=== PATIENT | female | born 1945 | race Caucasian/White ===

== ENCOUNTER → 2016-04-15 | Outpatient (CLI) | payer OTHER | LOC: FIMAGING 10:12 | PROVIDERS: ATTEND Physician Assistant Surgical | DX: Z98.1 Arthrodesis status (principal); M51.35 Other intervertebral disc degeneration, thoracolumbar region ==

== ENCOUNTER → 2016-06-30 | Outpatient (CLI) | payer OTHER | LOC: FIMAGING 10:33 | PROVIDERS: ATTEND Physician Assistant Surgical | DX: M51.35 Other intervertebral disc degeneration, thoracolumbar region (principal); M48.05 Spinal stenosis, thoracolumbar region; M99.72 Connective tissue and disc stenosis of intervertebral foramina of thoracic region; Z98.1 Arthrodesis status ==

== ENCOUNTER → 2016-07-31 | Outpatient (CLI) | payer OTHER ==
[~2016-07-31] MED LIST: GADOBUTROL 10 ML VIAL IVP ONE
== END ==
LOC: FIMAGING 15:29
PROVIDERS: ATTEND Physician Assistant Surgical
DX: M51.35 Other intervertebral disc degeneration, thoracolumbar region (principal); M47.895 Other spondylosis, thoracolumbar region; M48.05 Spinal stenosis, thoracolumbar region; M99.72 Connective tissue and disc stenosis of intervertebral foramina of thoracic region; Z98.1 Arthrodesis status
CPT/HCPCS: 72158; A9585

== ENCOUNTER → 2016-08-05 | Day surgery (SDC) | payer OTHER ==
[~2016-08-05] MED LIST changes: -GADOBUTROL 10 ML VIAL IVP ONE; +IOPAMIDOL (ISOVUE-300) 100 ML BTL ONE
== END | disposition home or self-care (01) ==
LOC: FIMAGING 14:14
PROVIDERS: ATTEND Radiology Diagnostic Radiology
DX: L02.91 Cutaneous abscess, unspecified (principal); D72.829 Elevated white blood cell count, unspecified; M43.26 Fusion of spine, lumbar region
CPT/HCPCS: Q9967

== ENCOUNTER → 2016-09-08 | Outpatient (CLI) | payer OTHER | LOC: FIMAGING 09:50 | PROVIDERS: ATTEND Physician Assistant Surgical | DX: M51.85 Other intervertebral disc disorders, thoracolumbar region (principal); Z98.1 Arthrodesis status | CPT/HCPCS: 78300; A9503 ==

== ENCOUNTER 2016-11-17 05:47 | Inpatient (IN) | payer OTHER ==
[2016-11-16 10:38] LABS: % IMMATURE GRANULYOCYTES 0.7 % (0.0-1.1); ABSOLUTE IMMATURE GRANULOCYTES 0.04 10^3/uL (0.00-0.10); ADD DIFF? NO; ADD MORPH? NO; ADD SCAN? NO; ATYPICAL LYMPHOCYTE FLAG 20 (0-99); FRAGMENT RBC FLAG 0 (0-99); HEMATOCRIT 39.9 % (38.0-47.0); HEMOGLOBIN 13.4 g/dL (12.6-16.3); LEFT SHIFT FLG 0 (0-99); LIPEMIA HEMOLYSIS FLAG 80 (0-99); MEAN CELL HEMOGLOBIN 31.4 pg (27.9-34.1); MEAN CELL HEMOGLOBIN CONCENTR. 33.6 g/dL (32.4-36.7); MEAN CELL VOLUME 93.4 fL (81.5-99.8); MEAN PLATELET VOLUME 9.1 fL (8.7-11.7); PLATELET CLUMPS FLAG 0 (0-99); PLATELET COUNT 357 10^3/uL (150-400); RED BLOOD CELL COUNT 4.27 10^6/uL (4.18-5.33); RED CELL DISTRIBUTION WIDTH 13.4 % (11.5-15.2)
[2016-11-17] MEDS ORDERED: TRANEXAMIC ACID 1,000 MG in NS 100 ML IV ONE (06:00)
[2016-11-17] MEDS ORDERED: ceFAZolin 2 GM/DEXTROSE 100 ML IV ONE (06:03)
[2016-11-17] MEDS ORDERED: fentaNYL 100 MCG/2 ML INJ IT ONE (06:03)
[2016-11-17] MEDS ORDERED: morphINE PF 5 MG/10 ML INJ IT ONE (06:03)
[2016-11-17] MEDS ORDERED: LR 1,000 ML IV ONE (06:05)
[2016-11-17] MEDS ORDERED: LIDOCAINE 1% 2 ML INJ ID PRN (06:05)
[2016-11-17] MEDS ORDERED: CHLORHEXIDINE GLUC HIBICLENS 118 ML BTL TP ONE (06:45)
[2016-11-17] MEDS ORDERED: THROMBIN (BOVINE) 20,000 UNIT VIAL TP ONE (06:45)
[2016-11-17] MEDS ORDERED: CITRATE DEXTROSE SOLN 500 ML BAG ONE (06:46)
[2016-11-17] MEDS ORDERED: BACITRACIN 50,000 UNITS/10 ML SYR IRR ONE (06:46)
[2016-11-17] MEDS ORDERED: BUPIVACAINE 0.25% 30 ML SDV ONE (06:46)
--- NOTE | 2016-11-17 06:53 | PDHPUP ---
History & Physical Update H&P update statement: This history and physical update is based on an assessment of the patient which was completed after admission or registration (within 24 hours), but prior to the surgery/procedure. H&P update: no change in patient's condition since H&P completed
[2016-11-17] MEDS ORDERED: MIDAZOLAM 2 MG/2 ML VIAL IVP ONE (06:58)
--- NOTE | 2016-11-17 07:00 | PDANEPAE ---
ANE History of Present Illness [id number] spinal stenosis ANE Past Medical History - Cardiovascular History Hx Hypertension: No Hx Arrhythmias: No Hx Chest Pain: No Hx Coronary Artery / Peripheral Vascular Disease: No Hx CHF / Valvular Disease: No Hx Palpitations: No - Pulmonary History Hx COPD: No Hx Asthma/Reactive Airway Disease: No Hx Recent Upper Respiratory Infection: No Hx Oxygen in Use at Home: No Hx Sleep Apnea: No Sleep Apnea Screening Result - Last Documented: Negative - Neurologic History Hx Cerebrovascular Accident: No Hx Seizures: No Hx Dementia: No Neurologic History Comment: MIGRAINES - VERAPAMIL - Endocrine History Hx Diabetes: No - Renal History Hx Renal Disorders: No - Liver History Hx Hepatic Disorders: No - Neurological & Psychiatric Hx Hx Neurological and Psychiatric Disorders: No - Cancer History Hx Cancer: No - Congenital Disorder History Hx Congenital Disorders: No - GI History Hx Gastrointestinal Disorders: Yes Gastrointestinal History Comment: GERD. HX - ULCERS. CDIFF - DX 09/2014 - Other Health History Other Health History: NEG - Chronic Pain History Chronic Pain: Yes (BACK PAIN) - Surgical History Prior Surgeries: HYSTERECTOMY. ACL/MENISCUS R KNEE. BACK SURG/ FUSIONS X8. JOE FOOT SURG. NECK LESIONS REMOVED. PROLAPSE REPAIR ANE Review of Systems Review of Systems: - Exercise capacity METS (RN): 4 METS ANE Patient History - Allergies Allergies/Adverse Reactions: SHRIMP Allergy (Severe, Uncoded 10/08/14 11:42) SWELLS ANYWHERE IT TOUCHES SEASONAL Allergy (Intermediate, Uncoded 10/08/14 11:42) RUNNY NOSE, ITCHY EYES - Home Medications Home Medications: Estradiol [Estrace Vaginal (*)] 0 gm VG MOWEFR@2200 10/08/14 [Last Taken ] Fluticasone Nasal [Flonase Nasal [place]] 1 sprays EACHNARE DAILY 10/08/14 [Last Taken 10/04/14] Gemfibrozil [Lopid 600 MG (*)] 600 mg PO BIDAC 10/08/14 [Last Taken 10/04/14] Herbals/Supplements -Info Only 1 ea PO DAILY 10/08/14 [Last Taken 10/03/14] Multivitamins [Multivitamin (*)] 1 each PO DAILY 10/08/14 [Last Taken 10/03/14] Omeprazole [Prilosec 20 mg] 20 mg PO BID 10/08/14 [Last Taken 10/03/14] Rosuvastatin Calcium [Crestor 20mg (*)] 10 mg PO HS 10/08/14 [Last Taken ] Verapamil HCl [Verapamil Sr] 180 mg PO DAILY 10/08/14 [Last Taken 10/03/14] Vitamin B Complex [B Complex] 1 each PO DAILY 10/08/14 [Last Taken 10/03/14] clonazePAM [klonoPIN (*)] 1 mg PO HS PRN 10/08/14 [Last Taken 10/07/14 22:00] Etodolac 400 mg PO DAILY 10/21/16 [Last Taken Unknown] GABAPENTIN 1,200 mg PO BID 11/16/16 [Last Taken Unknown] Ibuprofen [Motrin (*)] 200 - 600 mg PO DAILY PRN 11/16/16 [Last Taken Unknown] traMADol [Ultram 50 mg (*)] 100 mg PO DAILY AT 6AM PRN 11/16/16 [Last Taken Unknown] - NPO status NPO Since - Liquids (Date): 11/16/16 NPO Since - Liquids (Time): 16:00 NPO Since - Solids (Date): 11/16/16 NPO Since - Solids (Time): 16:00 - Smoking Hx Smoking Status: Former smoker - Family Anes Hx Family Hx Anesthesia Complications: NEG ANE Labs/Vital Signs - Labs Result Diagrams: 11/16/16 10:25 - Vital Signs Blood Pressure: 160/74 Heart Rate: 81 Respiratory Rate: 14 O2 Sat (%): 97 Height: 170.18 cm Weight: 68.039 kg ANE Physical Exam - Airway Neck exam: FROM Mallampati Score: Class 1 Mouth exam: normal dental/mouth exam - Pulmonary Pulmonary: no respiratory distress - Cardiovascular Cardiovascular: regular rate and rhythym - ASA Status ASA Status: II ANE Anesthesia Plan Anesthesia Plan: general endotracheal anesthesia
[2016-11-17] MEDS ORDERED: ROCURONIUM 50 MG/5 ML VIAL ONE (07:08)
[2016-11-17] MEDS ORDERED: PROPOFOL 200 MG/20 ML VIAL ONE ×2 (07:09→07:41)
[2016-11-17] MEDS ORDERED: HYDROmorphONE/DILAUDID 2 MG/ML INJ ONE (07:09)
[2016-11-17] MEDS ORDERED: fentaNYL 100 MCG/2 ML INJ ONE ×6 (07:09→11:06)
[2016-11-17] MEDS ORDERED: LIDOCAINE 2% 5 ML SDV ONE (07:13)
[2016-11-17] MEDS ORDERED: ONDANSETRON 4 MG/2 ML VIAL ONE (07:13)
[2016-11-17] MEDS ORDERED: KETAMINE 100 MG/10 ML SYR ONE (07:13)
[2016-11-17] MEDS ORDERED: DEXAMETHASONE 4 MG/ML VIAL ONE (07:13)
--- NOTE | 2016-11-17 07:34 | PDGENHP ---
History and Physical History and Physical: I met with the patient and her this morning. I reviewed the procedure for the left SI joint fusion, including risks and benefits. All questions answered and she was in agreement with proceeding. I also marked her left SI joint.
[2016-11-17] MEDS ORDERED: SURGIFLO MATRIX KIT WITH THROMBIN TP ONE (08:14)
[2016-11-17] MEDS ORDERED: epHEDrine SULFATE 10 MG/ML SYR ONE (08:59)
[2016-11-17] MEDS ORDERED: PHENYLEPHRINE HCL 100 MCG/ML SYR ONE (08:59)
[2016-11-17] MEDS ORDERED: ONDANSETRON 4 MG/2 ML VIAL IVP PRN ×2 (10:14→11:10)
[2016-11-17] MEDS ORDERED: PROMETHAZINE HCL 25 MG/ML INJ IVP PRN (10:14)
[2016-11-17] MEDS ORDERED: NALOXONE HCL 0.4 MG/ML INJ IVP PRN ×2 (10:14→11:10)
--- NOTE | 2016-11-17 11:04 | POSTANESTH ---
Post Anesthetic Evaluation Cardiovascular Status: Normal, Stable Respiratory Status: Normal, Stable Level of Consciousness/Mental Status: Can Participate in Eval Pain Control: Adequate, Prn Tx Ordered Nausea/Vomiting Control: Adequate, Prn Tx Ordered Complications Possibly Related to Anesthesia: None Noted
[2016-11-17] MEDS ORDERED: morphINE PCA 30 MG/30 ML PCA IV PRN (11:10)
[2016-11-17] MEDS ORDERED: diphenhydrAMINE 25 MG CAP PO PRN (11:10)
[2016-11-17] MEDS ORDERED: BISACODYL 10 MG SUPP PR PRN (11:10)
[2016-11-17] MEDS ORDERED: MAGNESIUM HYDROXIDE 30 ML UDCUP PO PRN (11:10)
[2016-11-17] MEDS ORDERED: LACTULOSE 20 GM/30 ML UDCUP PO PRN (11:10)
[2016-11-17] MEDS ORDERED: ONDANSETRON DISINTEGRATING 4 MG TAB PO PRN (11:10)
--- NOTE | 2016-11-17 11:10 | POSTOPPROG ---
Post Op Note Date of Operation: 11/17/16 Surgeon: Bean Munoz Transformation Manager: Sandie Anesthesiologist: HOLLI Anesthesia: GET(General Endotracheal) Pre-op Diagnosis: T12/L1 stenosis. left SI joint pain/arthritis Post-op Diagnosis: same Indication: Low back pain, stenosis, left SI joint pain Procedure: Left SI joint fusion (Dr. Rodriguez). T12/L1 TLIF (Dr. Munoz) Findings: severe stenosis T12/L1 Inf/Abcess present in the surg proc area at time of surgery?: No EBL: 50-100 Complications: none Drains: Nils Craven (to bulb suction)
[2016-11-17] MEDS: fentaNYL 100 MCG/2 ML INJ IVP PRN ×2 (11:12→11:22)
[2016-11-17] MEDS ORDERED: NS 1,000 ML IV SCH (11:15)
[2016-11-17] MEDS ORDERED: clonazePAM 1 MG TAB PO PRN (11:20)
--- NOTE | 2016-11-17 11:27 | SOAPPROG ---
SRINIVASAN Progress Note Assessment/Plan: Assessment: POST OP CHECK: doing well s/p T12/L1 TLIF and left SI joint fusion Plan: CPM and transfer to floor per protocol CT lumbar spine without contrast today to evaluate position of T12/L1 grafts and hardware 11/17/16 11:26 11/17/16 11:28 Subjective: awake, alert, comfortable. Objective: Vital Signs Temp Pulse Resp BP Pulse Ox 36.4 C 81 14 160/74 H 97 11/17/16 06:17 11/17/16 06:59 11/17/16 06:59 11/17/16 06:59 11/17/16 06:59 Laboratory Results 11/16/16 10:25 Neuro: Speech clear Oriented x3 follows commands x 4 sens +LT, SETH Vital: HR: 83 BP: 131/72 O2:92% ICD10 Worksheet Patient Problems: Problems Problem Status Onset C. difficile diarrhea Acute 01/21/15 ESBL (extended spectrum beta-lactamase) producing bacteria infection Acute 02/05 Lumbago Acute Radiculopathy Acute
[2016-11-17] MEDS ORDERED: HYDROmorphONE/DILAUDID 1 MG/ML INJ ONE (11:37)
[2016-11-17] MEDS: HYDROmorphONE/DILAUDID 1 MG/ML INJ IVP PRN ×4 (11:38→12:26)
[2016-11-17] MEDS ORDERED: clonazePAM 0.5 MG TAB PO PRN (12:37)
--- NOTE | 2016-11-17 14:04 | GOP ---
[f rep st] OPERATIVE REPORT DATE OF OPERATION: SURGEON: Dylan Rodriguez MD PUTTER IN: Scott Hooper, PAC. ANESTHESIA: General. PREOPERATIVE DIAGNOSIS: Left-sided sacroiliitis. POSTOPERATIVE DIAGNOSIS: Left-sided sacroiliitis. PROCEDURE PERFORMED: 1. Left-sided sacroiliac joint fusion with 2 [employer]tronic [place] devices. 2. Use of intraoperative 3D Stealth navigation. 3. Use of intraoperative fluoroscopy, less than 1 hour fluoroscopy time. 4. Use of neuromonitoring. FINDINGS: per imaging SPECIMENS: None. ESTIMATED BLOOD LOSS: 10 mL. INDICATIONS: This is a patient of Dr. Munoz who has undergone multiple spinal surgeries. She presented with adjacent level breakdown of her thoracolumbar junction, as well as sacroiliitis and SI joint dysfunction. After discussion of the risks, benefits, and treatment alternatives, the patient opted for surgical intervention, both for her thoracic, thoracolumbar spine adjacent level of breakdown as well as her left-sided sacroiliac joint dysfunction. The spinal adjacent level surgery will be dictated in a separate op report with Dr. Munoz. This is the left-sided sacroiliac joint fusion procedure. DESCRIPTION OF PROCEDURE: The patient was brought to the operating theater and underwent general endotracheal anesthesia without complications. She had Venodynes, STELLA hose, and the appropriate lines placed by Anesthesia. She was flipped prone onto the Nils table and all bony prominences inspected and padded. The thoracolumbar midline incision, as well as the right posterior superior iliac spine and the left-sided buttocks were all prepped and draped in the usual sterile surgical fashion. A time-out was completed per protocol, and the patient received antibiotics within 1 hour of incision. A small incision was infiltrated over the right PSIS and taken down through subcutaneous tissues. We then placed a percutaneous pin into the right PSIS for the 3D Stealth navigation system. We then completed a 3D Stealth navigation spin with the O-arm. Using 3D Stealth navigation, we picked our entry point to the left sacroiliac joint. The trajectory was not ideal given the patient's angulation of her pelvis as well as widening of the SI joint. At this point, using the navigation system we marked out an incision and made this as a vertical gorge on the left buttocks. The incision was infiltrated with Marcaine with epinephrine. Using the stealth navigation system, we drilled, tapped, and placed two 12 x 40 Medtronic [place] screw devices filled with morselized autograft and allograft across the left-sided SI joint. Another 3D Stealth navigation spin demonstrated excellent placement of this hardware. We removed the percutaneous pin from the right-sided PSIS and closed the wounds, after irrigation, with multiple layers including Vicryl sutures for the deep layers and Dermabond for the skin. The patient's wounds were dressed sterilely. This was completion of this portion of the surgery and she was still asleep at the time of this dictation. There were no changes in neuro monitoring. The patient then underwent thoracolumbar portion of the surgery with Dr. Munoz, which will be dictated in a separate operative report. COMPLICATIONS: None. /[id number]/MODL MTDD
[2016-11-17] MEDS: ACETAMINOPHEN 500 MG TAB PO SCH (14:38)
[2016-11-17] MEDS ORDERED: IOPAMIDOL (ISOVUE 370) 100 ML BTL IV ONE (15:23)
[2016-11-17] MEDS: POLYETHYLENE GLYCOL 3350 17 GM PKT PO SCH ×2 (16:46→17:03)
[2016-11-17] MEDS: ceFAZolin 2 GM/DEXTROSE 100 ML IV SCH ×2 (16:56→23:59)
[2016-11-17] MEDS: GEMFIBROZIL 600 MG TAB PO SCH (17:03)
--- NOTE | 2016-11-17 17:10 | GOP ---
[f rep st] OPERATIVE REPORT DATE OF OPERATION: 11/17/2016 SURGEON: Bean Munoz MD NEUROSURGEON: Bean Munoz MD THIRD LOADER: LAUREANO Robertson. ANESTHESIA: General endotracheal. PREOPERATIVE DIAGNOSIS: Severe T12-L1 degenerative disk disease with critical spinal stenosis and in tractable low back pain and bilateral radicular discomfort. POSTOPERATIVE DIAGNOSIS: Severe T12-L1 degenerative disk disease with critical spinal stenosis and i ntractable low back pain and bilateral radicular discomfort. PROCEDURE PERFORMED: 1. Left-sided T12-L1 far lateral transpedicular decompression with T12-L1 posterior nonsegmental (pe dicle screw and axial device) fixation and posterolateral fusion with local autograft and bone morpho genic protein. 2. T12-L1 posterior/transforaminal lumbar interbody fusion with 2 structural PEEK interbody spacers, local autograft and bone morphogenic protein. 3. Use of intraoperative microscopy, fluoroscopy and computer volumetric stereotactic navigation, wi th intraoperative neurophysiologic testing. FINDINGS: ESTIMATED BLOOD LOSS: Trace. INDICATIONS: The patient is a 71-year-old woman who has an extensive past medical and surgical histo ry involving her low back, with multiple prior decompressions and fusions, who has intractable pain a nd radicular symptoms, as well as neurogenic claudication with severe spinal stenosis and degenerativ e disk disease, and disk space collapse at the T12-L1 level. She presents now for surgical decompres paulie and stabilization. DESCRIPTION OF PROCEDURE: After informed consent was obtained, the patient was taken to the operatin g room, and placed in the prone position on the Nils table. The thoracolumbar sacral area was pre pped and draped in a sterile fashion, and after Dr. Rodriguez performed an SI joint fusion, the T12-L1 a en was localized and after injection of the subcutaneous and intramuscular tissues with local anesth esia, a midline linear incision was created over this area. This was carried down to the fascial lay er, which was incised with the monopolar electrocautery and carried in a subperiosteal plane along th e spinous process and lamina bilaterally. Intraoperative fluoroscopy was again used to verify the co rrect levels. Following this, dissection was carried out over the facet joints. The microscope was then brought in and, after re-verification of the correct levels, a left-sided far lateral transpedicular decompress ion was performed with complete unroofing of the facet joint and neural foramina at T12 and L1, as we ll as the central canal decompression was extensively performed and a right-sided lateral recess deco mpression by angling the microscope across the midline. Following adequate decompression, the [employer] neuronavigational system was brought in and using computer volumetric stereotactic navigation, pedi xiomy screws were placed at T12 and L1 bilaterally. Each individual screw was tested neurophysiologica lly with monopolar electrostimulation and interpretation of the potentials by the surgeon. Biplanar fluoroscopy was utilized to verify good position of the screws. Rods were then placed under distraction, during which time a complete diskectomy was performed. A la rge lateral disk herniation was identified. It was carefully removed with the reverse angle curettes and pituitary rongeur. A complete diskectomy was performed with preparation of endplates and placem ent of 2 structural PEEK interbody spacers, local autograft and bone morphogenic protein for T12-L1 p osterior/transforaminal lumbar interbody fusion. An initial x-ray was taken with placement of the 1s t graft and more local autograft along with bone morphogenic protein and a 2nd PEEK interbody spacer was placed. Following this, the 1st graft had migrated somewhat anteriorly. It was difficult to tel l exactly how far but I did not feel that it was in the patient's best interest to try to retrieve it . The screw and kate system was then placed in a slight amount of compression in order to facilitate bon y union and to minimize the potential for posterior graft migration. The remaining lamina and facet joint on the right were extensively decorticated and the residual local autograft along with bone mor phogenic protein was placed out laterally for posterolateral fusion at the T12-L1 level. The subcuta neous and intramuscular tissues were re-infiltrated with local anesthesia. A drain was placed. The wound was closed in a layered fashion using interrupted Vicryl sutures followed by Steri-Strips on th e skin. COMPLICATIONS: None. DISPOSITION: The patient is currently in the process of being repositioned for extubation. /[id number]/MODL
[2016-11-17] MEDS: oxyCODONE IR 5 MG TAB PO PRN (19:45)
[2016-11-17] MEDS: SENNOSIDES/DOCUSATE SODIUM TAB PO SCH (19:45)
[2016-11-17] MEDS: morphINE SR 15 MG TAB PO SCH (19:45)
[2016-11-17] MEDS: GABAPENTIN 400 MG CAP PO SCH (19:45)
[2016-11-17] MEDS: ROSUVASTATIN CALCIUM 20 MG TAB PO SCH (19:45)
[2016-11-17] MEDS: FAMOTIDINE 20 MG TAB PO SCH (19:47)
[2016-11-17 20:06] VITALS: RESP 16
[2016-11-17] MEDS ORDERED: NON-FORMULARY NEW DRUG (Gabapentin [Gabapentin] 1,200 MG) PO SCH (21:00)
[2016-11-18] MEDS: oxyCODONE IR 5 MG TAB PO PRN ×4 (00:01→15:13)
[2016-11-18] MEDS: POLYETHYLENE GLYCOL 3350 17 GM PKT PO SCH ×4 (00:01→20:42)
[2016-11-18] MEDS: ACETAMINOPHEN 500 MG TAB PO SCH ×4 (00:01→20:29)
[2016-11-18 04:52] LABS: % IMMATURE GRANULYOCYTES 0.4 % (0.0-1.1); ABSOLUTE IMMATURE GRANULOCYTES 0.06 10^3/uL (0.00-0.10); ADD DIFF? NO; ADD MORPH? NO; ADD SCAN? NO; ATYPICAL LYMPHOCYTE FLAG 0 (0-99); FRAGMENT RBC FLAG 0 (0-99); HEMATOCRIT 31.4 % (38.0-47.0); HEMOGLOBIN 10.5 g/dL (12.6-16.3); LEFT SHIFT FLG 0 (0-99); LIPEMIA HEMOLYSIS FLAG 80 (0-99); MEAN CELL HEMOGLOBIN 31.5 pg (27.9-34.1); MEAN CELL HEMOGLOBIN CONCENTR. 33.4 g/dL (32.4-36.7); MEAN CELL VOLUME 94.3 fL (81.5-99.8); MEAN PLATELET VOLUME 9.5 fL (8.7-11.7); PLATELET CLUMPS FLAG 0 (0-99); PLATELET COUNT 299 10^3/uL (150-400); RED BLOOD CELL COUNT 3.33 10^6/uL (4.18-5.33); RED CELL DISTRIBUTION WIDTH 13.5 % (11.5-15.2)
[2016-11-18 05:01] LABS: ANION GAP 8 mEq/L (8-16); CALCIUM 9.6 mg/dL (8.5-10.4); CARBON DIOXIDE 22 mEq/l (22-31); CHLORIDE 108 mEq/L (97-110); CREATININE 0.7 mg/dL (0.6-1.0); GLOMERULAR FILTRATION RATE > 60; GLUCOSE 104 mg/dL (70-100); POTASSIUM 4.3 mEq/L (3.5-5.2); SODIUM 138 mEq/L (134-144)
[2016-11-18] MEDS: GEMFIBROZIL 600 MG TAB PO SCH ×2 (06:09→17:04)
[2016-11-18] MEDS: METHOCARBAMOL 750 MG TAB PO PRN ×2 (06:11→17:07)
--- NOTE | 2016-11-18 07:22 | SOAPPROG ---
SOAP Progress Note Assessment/Plan: Assessment: POD #1: doing well s/p T12/L1 TLIF and left SI joint fusion Post op CT lumbar spine and CT angiogram not concerning for vessel impingement. Plan: PT/OT today. LSO when out of bed SELENE to bulb suction call with Neuro changes Subjective: awake, alert, feels "sore" but pain is manageable denies any new numbness, tingling or weakness Objective: Vital Signs Temp Pulse Resp BP Pulse Ox 36.6 C 72 16 132/56 H 96 11/18/16 04:00 11/18/16 04:00 11/18/16 04:00 11/18/16 04:00 11/18/16 04:00 Laboratory Results 11/18/16 04:31 11/18/16 04:31 11/17/16 11/18/16 11/19/16 05:59 05:59 05:59 Intake Total 3530 Output Total 4755 Balance -1225 SELENE: 115ml Neuro: SETH, sens +LT 5/5 PF/DF/EHL Dressing: CDI ICD10 Worksheet Patient Problems: Problems Problem Status Onset C. difficile diarrhea Acute 01/21/15 ESBL (extended spectrum beta-lactamase) producing bacteria infection Acute 02/05 Lumbago Acute Radiculopathy Acute
[2016-11-18] MEDS: GABAPENTIN 400 MG CAP PO SCH ×2 (08:54→20:28)
[2016-11-18] MEDS: FAMOTIDINE 20 MG TAB PO SCH ×2 (08:55→20:28)
[2016-11-18] MEDS: SENNOSIDES/DOCUSATE SODIUM TAB PO SCH ×2 (08:55→20:41)
[2016-11-18] MEDS: morphINE SR 15 MG TAB PO SCH ×2 (08:56→20:28)
[2016-11-18] MEDS: ENOXAPARIN 40 MG/0.4 ML SYR SC SCH (08:56)
[2016-11-18] MEDS: VERAPAMIL ER 180 MG TAB PO SCH (08:56)
[2016-11-18] MEDS ORDERED: VERAPAMIL HCL 180 MG PO SCH (09:00)
[2016-11-18] MEDS: FLUTICASONE NASAL 120 SPRAYS/16 GM MDI EACHNARE SCH (10:28)
[2016-11-18] MEDS ORDERED: FLU VACC QS 2017-18 (3YR+)/PF 0.5 ML SYR (FLUARIX QUAD) IM ONE (12:14)
--- NOTE | 2016-11-18 14:05 | ASMTCMCOM ---
CM Note CM Note Notes: Pt had planned spinal surgery. OT/PT clear pt for home. Pt lives w husb, anticipate d/c when medically stable. CM available for changes/needs. Date Signed: 11/18/2016 02:05 PM Electronically Signed By:MELLY Pereira
--- NOTE | 2016-11-18 17:18 | SOAPPROG ---
SRINIVASAN Progress Note Assessment/Plan: Assessment:asked by Dr. Edward to review postop images regarding hardware migration. Images reviewed. Clear fat planes between aorta, IVC and splenic vein noted. Discussed with patient who is recovering well after her spinal instrumentation yesterday. No further workup warranted at this time. If evidence of future migration noted on subsequent future images, further assessment can be entertained at that time. Please call with further questions. Plan: 11/18/16 17:08 Objective: Vital Signs Temp Pulse Resp BP Pulse Ox 36.6 C 69 16 137/62 H 94 11/18/16 15:58 11/18/16 15:58 11/18/16 15:58 11/18/16 15:58 11/18/16 15:58 Laboratory Results 11/18/16 04:31 11/18/16 04:31 11/17/16 11/18/16 11/19/16 05:59 05:59 05:59 Intake Total 3530 Output Total 9255 730 Balance -1225 -730 ICD10 Worksheet Patient Problems: Problems Problem Status Onset C. difficile diarrhea Acute 01/21/15 ESBL (extended spectrum beta-lactamase) producing bacteria infection Acute 02/05 Lumbago Acute Radiculopathy Acute
[2016-11-18] MEDS: ROSUVASTATIN CALCIUM 20 MG TAB PO SCH (20:40)
[2016-11-19] MEDS: oxyCODONE IR 5 MG TAB PO PRN ×3 (00:30→14:17)
--- NOTE | 2016-11-19 04:17 | GCON ---
[f rep st] CONSULTATION DATE OF CONSULTATION: 11/18/2016 REASON FOR ADMISSION: Hardware migration. HISTORY OF PRESENT ILLNESS: 71-year-old female with a significant history of chronic back pain. She underwent remote spinal instrumentation, which was complicated by a Staph epidermidis infection. She underwent a subsequent hardware removal. She was readmitted on this admission for surgical hardware removal for her T12-L1 degenerative disk disease with critical spinal stenosis and intractable lower back pain with radiculopathy, as well as SI joint fusion. During her procedure, there was greater than anticipated anterior placement of her PEEK interbody spacer anteriorly. Postoperatively, imaging was performed. Surgery has been requested for further recommendations regarding potential role for further hardware retrieval. PHYSICAL EXAMINATION: The patient is recovering well postop day #1 with well- controlled pain. She has no abdominal complaints whatsoever. On exam, she has a completely benign abdominal exam. IMAGING DATA: CT images were reviewed where her anteriorly displaced hardware is noted. There is no impingement upon her aorta or inferior vena cava. Her left renal vein is also well preserved. There appeared to be healthy-appearing fat planes around all vascular structures. The hardware appears to be terminating within the crease of the right diaphragm. IMPRESSION AND RECOMMENDATIONS: At this point, the patient does not require any further imaging or attempts at hardware repositioning or removal as there is no vital structure impingement or concern at this junction in time. If patient is noted to have further anterior displacement with subsequent imaging studies, this can be worked up further as warranted then. These findings and recommendations were discussed with the patient and with Dr. Munoz. Please call if I can be of further assistance. /[id number]/MODL MTDD
[2016-11-19] MEDS: ACETAMINOPHEN 500 MG TAB PO SCH ×2 (05:09→14:18)
[2016-11-19] MEDS: METHOCARBAMOL 750 MG TAB PO PRN ×2 (07:50→16:00)
[2016-11-19] MEDS: morphINE SR 15 MG TAB PO SCH (07:50)
[2016-11-19] MEDS: GEMFIBROZIL 600 MG TAB PO SCH ×2 (07:56→16:01)
[2016-11-19] MEDS: FAMOTIDINE 20 MG TAB PO SCH (07:57)
[2016-11-19] MEDS: GABAPENTIN 400 MG CAP PO SCH (07:57)
[2016-11-19] MEDS: VERAPAMIL ER 180 MG TAB PO SCH (07:57)
[2016-11-19] MEDS: ENOXAPARIN 40 MG/0.4 ML SYR SC SCH (07:57)
--- NOTE | 2016-11-19 09:46 | SOAPPROG ---
SOAP Progress Note Assessment/Plan: Assessment: 71 yo F POD #2 T12/L1 TLIF and left SI joint fusion Plan: neuro: stable and doing well overall :) diarrhea last night may be from miralax, hx of c diff in the past, if diarrhea continues with test for C diff PT/OT LSO brace when out of bed post op imaging looks good please call with neuro changes may dc home today if diarrhea resolves patient was seen by DR Edward 11/19/16 09:44 Subjective: continued back pain, no leg pain or weakness ,diarrhea last night Objective: Vital Signs Temp Pulse Resp BP Pulse Ox 36.8 C 86 16 132/61 H 93 11/19/16 07:46 11/19/16 07:46 11/19/16 07:46 11/19/16 07:57 11/19/16 07:46 Laboratory Results 11/18/16 04:31 11/18/16 04:31 11/18/16 11/19/16 11/20/16 05:59 05:59 05:59 Intake Total 3530 Output Total 4755 761 40 Balance -1225 -761 -40 AAOX4, +FC PERRL, EOMI, no facial droop LISBETH x 4, 5/5 LE + light touch C/D/I x 2 ICD10 Worksheet Patient Problems: Problems Problem Status Onset C. difficile diarrhea Acute 01/21/15 ESBL (extended spectrum beta-lactamase) producing bacteria infection Acute 02/05 Lumbago Acute Radiculopathy Acute
[2016-11-19] MEDS: POLYETHYLENE GLYCOL 3350 17 GM PKT PO SCH (10:27)
[2016-11-19] MEDS: SENNOSIDES/DOCUSATE SODIUM TAB PO SCH (11:14)
[2016-11-19] MEDS: FLUTICASONE NASAL 120 SPRAYS/16 GM MDI EACHNARE SCH (11:14)
[2016-11-19 12:23] VITALS: BP 106/70; PULSE 87; TEMP 98.1; O2SAT 96
--- NOTE | 2016-11-20 15:19 | ASDISCHSUM ---
Discharge Information Plan Status:Home with No Needs Medically Cleared to Leave: Discharge Date:11/19/2016 04:25 PM CM D/C Disposition:Home, Routine, Self-Care ADT D/C Disposition:Home, Routine, Self-Care Projected Discharge Date:11/19/2016 04:25 PM Transportation at D/C: Discharge Delay Reason: Follow-Up Date:11/19/2016 04:25 PM Discharge Slot: Final Diagnosis: Placement Information Patient Contact Information Contact Name:DONAL Relationship: Address:[address] City:[place] Alternate Phone: [facility]/Zip Code:[place] [address] Email: Financial Information Financial Class: Primary Plan Desc:MEDICARE INPATIENT Primary Plan Number:[id number] Secondary Plan Desc:JAYLEN PPO POS HMO Secondary Plan Number:[id number] Assessment Information [facility] CM Progress Note CM Note CM Note Notes: Pt had planned spinal surgery. OT/PT clear pt for home. Pt lives w husb, anticipate d/c when medically stable. CM available for changes/needs. Date Signed: 11/18/2016 02:05 PM Electronically Signed By:MELLY Pereira Intervention Information Intervention Type:*IM-Signed Date of Service:11/19/2016 03:22 PM Patient Type:Inpatient Staff Member:Zuly Prasad Hours: Discipline: Severity: Comment:
== END 2016-11-19 16:25 | disposition home or self-care (01) | DRG 460 ==
LOC: F3N 05:47
PROVIDERS: ADMIT Neurological Surgery; ATTEND Neurological Surgery
DX: M51.15 Intervertebral disc disorders with radiculopathy, thoracolumbar region (principal); M46.1 Sacroiliitis, not elsewhere classified; K21.9 Gastro-esophageal reflux disease without esophagitis; Z98.1 Arthrodesis status
CPT/HCPCS: 97116-GP; 97161-GP; 97165-GO; C1713; G0008; G8978-GP-CI; G8979-GP-CI; G8980-GP-CI; G8987-GO-CI; G8988-GO-CI; G8989-GO-CI; J0171; J0690; J1100; J1170; J1650; J2250; J2274; J2370; J2405; J2704; J3010; J7060; Q9967

== ENCOUNTER 2016-12-04 14:18 | Inpatient (IN) | payer OTHER ==
[2016-12-04] MEDS ORDERED: ACETAMINOPHEN 500 MG TAB PO ONE (14:21)
[2016-12-04] MEDS ORDERED: ONDANSETRON 4 MG/2 ML VIAL IVP PRN ×2 (14:22→18:49)
[2016-12-04] MEDS ORDERED: ONDANSETRON DISINTEGRATING 4 MG TAB PO PRN (14:22)
[2016-12-04] MEDS ORDERED: NS W/ 20 KCl/L 1,000 ML IV SCH (14:30)
[2016-12-04] MEDS ORDERED: ALTEPLASE 2 MG VIAL IVP PRN (14:57)
[2016-12-04] MEDS ORDERED: VANCOMYCIN HCL/NORMAL SALINE 250 ML IV ONE (15:00)
[2016-12-04] MEDS ORDERED: BUPIVACAINE 0.25% 30 ML SDV ONE (15:38)
[2016-12-04] MEDS ORDERED: THROMBIN (BOVINE) 5,000 UNIT VIAL TP ONE (15:39)
[2016-12-04] MEDS ORDERED: AVITENE POWDER 1 GM JAR TP ONE (15:39)
[2016-12-04] MEDS ORDERED: BACITRACIN 50,000 UNITS/10 ML SYR IRR ONE (15:39)
--- NOTE | 2016-12-04 15:57 | GHP ---
[f rep st] HISTORY AND PHYSICAL DATE OF ADMISSION: 12/04/2016 CHIEF COMPLAINT: Back pain and malaise. HISTORY OF PRESENT ILLNESS: The patient is a very pleasant 71-year-old female, known to our practice from prior lumbar fusion surgeries in the past. Recently, the patient was seen in our office compla ining of left SI joint pain, as well as back pain and had known left SI joint arthritis and T12-L1 de generative disk disease. 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 The patient was treated for C diff colitis, as well as her previous wound infection by Dr. Evangelina Garvin. Today, the patient presented to our clinic for a second postoperative check and wound check after she contacted our office today reporting not feeling well. She states that at home she took her tempera ture, and it was 101.8 last night and then 99.7 this morning. She was brought into the clinic, and h er incision was re-evaluated and found to be slightly pinkish red and tender to touch. She underwent labs, which demonstrated a white count of 11.9, a CRP of 247.6, and an ESR of 60. Her UA was negati ve. She subsequently underwent aspiration of her thoracolumbar wound by Dr. Munoz in the [facility]i [facility] today, and purulent fluid was aspirated. Given the patient's clinical findings and purulent flui d on aspiration of her wound, we elected to admit her to the hospital for wound I and D tonight. Currently, the patient is reporting improvement of her left SI joint pain since surgery and is not gentile ving much in the way of back pain related to her surgical procedure. She denies numbness, tingling o r weakness in her legs and is not having any bowel or bladder incontinence. She is not having any ur inary burning or urgency. ALLERGIES: Shrimp and seasonal allergies. CURRENT MEDICATIONS: Clonazepam 1 mg p.o. q.h.s., estradiol 42.5 g per tube, fluticasone nasal spray 1 spray each naris daily, gabapentin 400 mg tablets twice daily, Lopid 600 mg p.o. b.i.d., methocarb rissa 750 mg p.o. q.i.d., MS-Contin 15 mg p.o. b.i.d., Prilosec 20 mg p.o. b.i.d., Oxycodone 5-10 mg p .o. q.4 hours p.r.n., Crestor 20 mg p.o. q.h.s., tramadol 50 mg p.o. daily, verapamil 180 mg p.o. josé miguel ly, vitamin B complex daily, and a multivitamin daily. PHYSICAL EXAM: GENERAL: Pleasant, tired-appearing 71-year-old female, in no apparent distress. HEA D, EARS, NOSE, AND THROAT: Within normal limits. EXTREMITIES: Within normal limits. BACK: Her th oracolumbar wound is healing; however, it is not fully healed at this time, and there is some slight area of crusting in the middle of the incision without any purulent drainage. There is pinkish alberto sh skin surrounding the incision, which is quite tender to touch. NEUROLOGIC: Patient is awake, paulina rt, and oriented x4. Cranial nerves 2-12 are intact to gross examination. Speech is fluent. Tongue is midline. Spinal accessory muscles are intact. She has equal and symmetric strength of the bilate ral upper and lower extremities, with normal sensation in all dermatomal distributions of the bilater al upper and lower extremities. LABORATORY DATA: White blood cell count performed today is 11.95, with a hemoglobin and hematocrit o f 10.9 and 32.3. Her white blood cell count is 11.5. Her CRP is 247.6, and her ESR is 60. Her UA i s negative. REVIEW OF SYSTEMS: Negative, other than as mentioned in the HPI. SOCIAL HISTORY: The patient is and lives with her . She does not drink or smoke. IMPRESSION: This is a 71-year-old female who is status post left sacroiliac joint fusion and a T12-L 1 transforaminal lumbar interbody fusion on 11/17/[address] Munoz. She has a pre-existing L5-S1 fusion, which was performed on October 09, 2014, and also at that time had undergone removal of L1 to L5 hardware due to her history of Staphylococcus epidermidis diskitis that occurred after her p rior left L5-S1 microdiskectomy on 09/13/2014. The patient has evidence of a wound infection based o n aspiration of purulent fluid from deep to her incision today in the clinic. She remains neurologic ally stable with a low-grade temperature. PLAN: All above issues were discussed with the patient in detail today with Dr. Munoz, who w as present. At this time, the patient will be admitted to the hospital. She will have a PICC line p laced and will be started on IV vancomycin. She will be kept n.p.o. for planned wound I and D tonigh t with Dr. Munoz. I have spoken to Dr. Evangelina Garvin today from Infectious Disease, who is fam iliar with the patient, and we will see her later today. /[id number]/MODL
[2016-12-04] MEDS: ACETAMINOPHEN 325 MG TAB PO PRN (16:54)
--- NOTE | 2016-12-04 16:58 | PCMIDPN ---
Assessment/Plan: # Wound Infection at T12-L1 surgical site with GPCs on Gram stain, debridement tonight --agree with blood cultures --continue monotherapy with vancomycin IV --will follow aspirate and surgical cultures. --duration of therapy depends on extent of wound infection. # H/O Cdiff: suppressive vanco Medication Vancomycin 1 g IV q.12 Subjective: 71-year-old woman well known to me with history of L5-S1 microdiscectomy August 2014 that was subsequently complicated by post op infection with S. epidermidis who went off suppressive antibiotics in April of 2016. Her antibiotic course was complicated by C diff. She recently underwent a L sided T12-L1 TLIF and left-sided SI joint fusion 11/18/2016 for ongoing back and sacral pain. Patient reports there was no removal of hardware. Patient was doing well had until a couple days ago with increasing back pain. She was seen on Wednesday12/01/2016 and her wound appears within normal limits but patient subsequently developed a fever to 102 and was re-evaluated in Neurosurgery Clinic today and found to have a wound infection. Aspiration in the clinic revealed 3+ GPCs on Gram stain. Patient is going to the OR for washout tonight. Objective: Vital Signs Temp Pulse Resp BP Pulse Ox 37.2 C 82 18 144/67 H 97 12/04/16 16:00 12/04/16 16:00 12/04/16 16:00 12/04/16 16:00 12/04/16 16:00 - Physical Exam General Appearance: alert, no apparent distress EENT: No scleral icterus, No thrush Respiratory: lungs clear, No accessory muscle use Neck: supple Cardiac/Chest: regular rate, rhythm Extremities: non-tender Abdomen: non-tender, soft Pelvic Exam: No bhat Back: other (Lower T-spine upper L-spine incision with surrounding induration and tenderness) Skin: normal color, warm/dry, No diaphoresis, No jaundice, No rash Neuro/Psych: no motor/sensory deficits, alert, normal mood/affect, oriented x 3 - Time Spent With Patient Time Spent with Patient: greater than 35 minutes (General outline of antibiotic therapy discussed with patient and her ) Time Spent with Patient: Greater than 35 minutes spent on this patients care, greater than 50% of time spent counseling, educating, and coordinating care regarding the above mentioned plan. ICD10 Worksheet Patient Problems: Problems Problem Status Onset C. difficile diarrhea Acute 01/21/15 ESBL (extended spectrum beta-lactamase) producing bacteria infection Acute 02/05 Lumbago Acute Radiculopathy Acute
[2016-12-04] MEDS ORDERED: ROCURONIUM 100 MG/10 ML VIAL ONE (17:24)
[2016-12-04] MEDS ORDERED: fentaNYL 100 MCG/2 ML INJ ONE ×3 (17:24→19:19)
[2016-12-04] MEDS ORDERED: LIDOCAINE 2% 5 ML SDV ONE (17:24)
[2016-12-04] MEDS ORDERED: PROPOFOL 200 MG/20 ML VIAL ONE (17:24)
[2016-12-04] MEDS ORDERED: MIDAZOLAM 2 MG/2 ML VIAL IVP ONE (18:02)
--- NOTE | 2016-12-04 18:02 | PDANEPAE ---
ANE History of Present Illness wound infection post spinal surgery t12l1 ANE Past Medical History - Cardiovascular History Hx Hypertension: No Hx Arrhythmias: No Hx Chest Pain: No Hx Coronary Artery / Peripheral Vascular Disease: No Hx CHF / Valvular Disease: No Hx Palpitations: No - Pulmonary History Hx COPD: No Hx Asthma/Reactive Airway Disease: No Hx Recent Upper Respiratory Infection: No Hx Oxygen in Use at Home: No Hx Sleep Apnea: No Sleep Apnea Screening Result - Last Documented: Negative - Neurologic History Hx Cerebrovascular Accident: No Hx Seizures: No Hx Dementia: No Neurologic History Comment: MIGRAINES - VERAPAMIL - Endocrine History Hx Diabetes: No - Renal History Hx Renal Disorders: No - Liver History Hx Hepatic Disorders: No - Neurological & Psychiatric Hx Hx Neurological and Psychiatric Disorders: No - Cancer History Hx Cancer: No - Congenital Disorder History Hx Congenital Disorders: No - GI History Hx Gastrointestinal Disorders: Yes Gastrointestinal History Comment: GERD. HX - ULCERS. CDIFF - DX 09/2014 - Other Health History Other Health History: NEG - Chronic Pain History Chronic Pain: Yes (BACK PAIN) - Surgical History Prior Surgeries: HYSTERECTOMY. ACL/MENISCUS R KNEE. BACK SURG/ FUSIONS X8. JOE FOOT SURG. NECK LESIONS REMOVED. PROLAPSE REPAIR ANE Review of Systems Review of Systems: ANE Patient History - Allergies Allergies/Adverse Reactions: SHRIMP Allergy (Severe, Uncoded 12/04/16 15:18) SWELLS ANYWHERE IT TOUCHES SEASONAL Allergy (Intermediate, Uncoded 12/04/16 15:18) RUNNY NOSE, ITCHY EYES - Home Medications Home Medications: Estradiol [Estrace Vaginal (*)] 0 gm VG MOWEFR@2200 10/08/14 [Last Taken ] Fluticasone Nasal [Flonase Nasal [place]] 1 sprays EACHNARE DAILY 10/08/14 [Last Taken 12/03/16] Gemfibrozil [Lopid 600 MG (*)] 600 mg PO BIDAC 10/08/14 [Last Taken 12/04/16] Herbals/Supplements -Info Only 1 ea PO DAILY 10/08/14 [Last Taken 10/03/14] Multivitamins [Multivitamin (*)] 1 each PO DAILY 10/08/14 [Last Taken 12/04/16] Omeprazole [Prilosec 20 mg] 20 mg PO DAILY 10/08/14 [Last Taken 12/04/16] Rosuvastatin Calcium [Crestor 20mg (*)] 10 mg PO HS 10/08/14 [Last Taken ] Verapamil HCl [Verapamil Sr] 180 mg PO DAILY 10/08/14 [Last Taken 12/04/16] Vitamin B Complex [B Complex] 1 each PO DAILY 10/08/14 [Last Taken 12/04/16] clonazePAM [klonoPIN (*)] 1 mg PO HS PRN 10/08/14 [Last Taken 12/03/16] traMADol [Ultram 50 mg (*)] 100 mg PO DAILY AT 6AM PRN 11/16/16 [Last Taken ] Gabapentin [Neurontin 400 MG (*)] 1,200 mg PO BID 12/04/16 [Last Taken 12/04/16] morphINE SR [Ms Contin/Oramorph 15 mg (*)] 15 mg PO BID PRN 12/04/16 [Last Taken 12/03/16] - NPO status NPO Since - Liquids (Date): 12/04/16 NPO Since - Liquids (Time): 12:00 NPO Since - Solids (Date): 12/04/16 NPO Since - Solids (Time): 12:00 - Smoking Hx Smoking Status: Former smoker - Family Anes Hx Family Hx Anesthesia Complications: NEG ANE Labs/Vital Signs - Vital Signs Blood Pressure: 142/75 Heart Rate: 84 Respiratory Rate: 14 O2 Sat (%): 95 Height: 170.18 cm Weight: 68.039 kg ANE Physical Exam - Airway Neck exam: FROM Mallampati Score: Class 1 Mouth exam: normal dental/mouth exam - Pulmonary Pulmonary: no respiratory distress - Cardiovascular Cardiovascular: regular rate and rhythym - ASA Status ASA Status: II ANE Anesthesia Plan Anesthesia Plan: general endotracheal anesthesia
[2016-12-04] MEDS ORDERED: MIDAZOLAM 2 MG/2 ML VIAL ONE (18:09)
[2016-12-04] MEDS ORDERED: HYDROmorphONE/DILAUDID 2 MG/ML INJ ONE (18:32)
[2016-12-04] MEDS ORDERED: PROMETHAZINE HCL 25 MG/ML INJ IVP PRN (18:49)
[2016-12-04] MEDS ORDERED: HYDROCODONE/APAP 5/325 TAB PO PRN (18:49)
[2016-12-04] MEDS ORDERED: MEPERIDINE 25 MG/ML SYR IVP PRN (18:49)
[2016-12-04] MEDS ORDERED: NALOXONE HCL 0.4 MG/ML INJ IVP PRN (18:49)
[2016-12-04] MEDS ORDERED: PIPERACILLIN/TAZO 3.375 GM/DEX 50 ML IV ONE (19:00)
[2016-12-04] MEDS ORDERED: MAGNESIUM HYDROXIDE 30 ML UDCUP PO PRN (19:05)
[2016-12-04] MEDS ORDERED: BISACODYL 10 MG SUPP PR PRN (19:05)
[2016-12-04] MEDS ORDERED: LACTULOSE 20 GM/30 ML UDCUP PO PRN (19:05)
--- NOTE | 2016-12-04 19:11 | SOAPPROG ---
SOAP Progress Note Assessment/Plan: Assessment: 71 yo F sp incision and drainage of T12/L1 deep wound infection Plan: stable purulent fluid extended below facia to the hardware cultures pending on vanco appreciate ID input please call with neuro changes 12/04/16 19:09 12/04/16 19:12 Subjective: + back pain, no leg pain, Objective: Vital Signs Temp Pulse Resp BP Pulse Ox 37.0 C 84 14 142/75 H 95 12/04/16 17:43 12/04/16 18:02 12/04/16 18:02 12/04/16 18:02 12/04/16 18:02 somnolent PERRL, EOMI, no facial droop LISBETH x 4 + light touch ICD10 Worksheet Patient Problems: Problems Problem Status Onset C. difficile diarrhea Acute 01/21/15 ESBL (extended spectrum beta-lactamase) producing bacteria infection Acute 02/05 Lumbago Acute Radiculopathy Acute
[2016-12-04] MEDS: fentaNYL 100 MCG/2 ML INJ IVP PRN ×2 (19:20→19:39)
--- NOTE | 2016-12-04 19:43 | GOP ---
[f rep st] OPERATIVE REPORT DATE OF OPERATION: 12/04/2016 SURGEON: Bean Munoz MD DIRECTOR HOSPICE OPERATIONS: LAUREANO Perez ANESTHESIA: General endotracheal. PREOPERATIVE DIAGNOSIS: Complex deep wound infection, thoracolumbar spine. POSTOPERATIVE DIAGNOSIS: Complex deep wound infection, thoracolumbar spine. PROCEDURE PERFORMED: Incision and drainage of complex deep wound infection. FINDINGS: ESTIMATED BLOOD LOSS: Trace. INDICATIONS: The patient is a 71-year-old woman a few weeks out from a thoracolumbar instrumentation and fusion procedure, who presents with fevers and erythema in the wound. A needle aspiration in [facility] clinic was sent for stat Gram stain and culture, and had gram-positive cocci, and she presents now for an urgent incision and drainage. DESCRIPTION OF PROCEDURE: After informed consent was obtained, the patient was taken to the operatin g room and placed in the prone position on the Nils table. The thoracolumbar and sacral areas wer e prepped and draped in a sterile fashion, and the prior incision carefully opened down to the fascia where there was purulent material. This was copiously irrigated with antibiotic irrigation and all the prior sutures were removed and any free tissue was scraped clean, and the wound was further copio usly irrigated. Following this, a drain was placed and the wound was closed in a layered fashion usi ng interrupted Vicryl sutures followed by bernardino on the skin. COMPLICATIONS: None. DISPOSITION: The patient is currently in the process of being re-positioned for extubation. /[id number]/MODL
[2016-12-04] MEDS ORDERED: HYDROmorphONE/DILAUDID 1 MG/ML INJ ONE (19:52)
[2016-12-04] MEDS: HYDROmorphONE/DILAUDID 1 MG/ML INJ IVP PRN ×3 (19:53→20:13)
[2016-12-04] MEDS: VANCOMYCIN 125 MG/2.5 ML UDL PO SCH (21:05)
[2016-12-04] MEDS: POLYETHYLENE GLYCOL 3350 17 GM PKT PO SCH (22:04)
[2016-12-04] MEDS: SENNOSIDES/DOCUSATE SODIUM TAB PO SCH (22:04)
[2016-12-04] MEDS: oxyCODONE IR 5 MG TAB PO PRN (23:55)
[2016-12-05] MEDS: METHOCARBAMOL 750 MG TAB PO PRN ×4 (04:08→20:12)
[2016-12-05] MEDS: oxyCODONE IR 5 MG TAB PO PRN ×6 (04:08→22:36)
[2016-12-05 06:13] LABS: % IMMATURE GRANULYOCYTES 0.2 % (0.0-1.1); ABSOLUTE IMMATURE GRANULOCYTES 0.02 10^3/uL (0.00-0.10); ADD DIFF? NO; ADD MORPH? NO; ADD SCAN? NO; ATYPICAL LYMPHOCYTE FLAG 0 (0-99); FRAGMENT RBC FLAG 0 (0-99); HEMATOCRIT 29.5 % (38.0-47.0); HEMOGLOBIN 9.9 g/dL (12.6-16.3); LEFT SHIFT FLG 0 (0-99); LIPEMIA HEMOLYSIS FLAG 80 (0-99); MEAN CELL HEMOGLOBIN 31.7 pg (27.9-34.1); MEAN CELL HEMOGLOBIN CONCENTR. 33.6 g/dL (32.4-36.7); MEAN CELL VOLUME 94.6 fL (81.5-99.8); MEAN PLATELET VOLUME 8.9 fL (8.7-11.7); PLATELET CLUMPS FLAG 0 (0-99); PLATELET COUNT 397 10^3/uL (150-400); RED BLOOD CELL COUNT 3.12 10^6/uL (4.18-5.33); RED CELL DISTRIBUTION WIDTH 13.5 % (11.5-15.2)
[2016-12-05] MEDS: VANCOMYCIN HCL/NORMAL SALINE 250 ML IV SCH ×2 (06:20→18:04)
[2016-12-05 06:44] LABS: ANION GAP 9 mEq/L (8-16); CALCIUM 9.3 mg/dL (8.5-10.4); CARBON DIOXIDE 24 mEq/l (22-31); CHLORIDE 105 mEq/L (97-110); CREATININE 0.6 mg/dL (0.6-1.0); GLOMERULAR FILTRATION RATE > 60; GLUCOSE 113 mg/dL (70-100); POTASSIUM 4.4 mEq/L (3.5-5.2); SODIUM 138 mEq/L (134-144)
--- NOTE | 2016-12-05 07:49 | SOAPPROG ---
SOAP Progress Note Assessment/Plan: Assessment: 71 yo F POD #1 incision and drainage of T12/L1 deep wound infection Plan: stable purulent fluid extended below facia to the hardware cultures pending, gram + cocci on gram stain on vanco SELENE x 1 scd/evgeny/lovenox for DVT prophylaxis will add mscontin for night time back pain and valium for spasms appreciate ID input please call with neuro changes 12/04/16 19:09 12/04/16 19:12 12/05/16 07:45 12/05/16 07:50 Subjective: continued back pain, some spasms last night, no leg pain, no weakness. Objective: Vital Signs Temp Pulse Resp BP Pulse Ox 37.1 C 69 16 161/75 H 99 12/05/16 04:00 12/05/16 04:00 12/05/16 04:00 12/05/16 04:00 12/05/16 04:00 Laboratory Results 12/05/16 05:50 12/05/16 05:50 12/04/16 12/05/16 12/06/16 05:59 05:59 05:59 Intake Total 1160 Output Total 455 Balance 705 AAOx4, +FC PERRL, EOMI, no facial droop 5/5 + light touch C/D/I ICD10 Worksheet Patient Problems: Problems Problem Status Onset C. difficile diarrhea Acute 01/21/15 ESBL (extended spectrum beta-lactamase) producing bacteria infection Acute 02/05 Lumbago Acute Radiculopathy Acute
[2016-12-05] MEDS ORDERED: clonazePAM 1 MG TAB PO PRN (08:01)
[2016-12-05] MEDS: ACETAMINOPHEN 325 MG TAB PO PRN ×3 (08:04→18:02)
[2016-12-05] MEDS: ENOXAPARIN 40 MG/0.4 ML SYR SC SCH (08:05)
[2016-12-05] MEDS: POLYETHYLENE GLYCOL 3350 17 GM PKT PO SCH ×4 (08:05→20:18)
[2016-12-05] MEDS: VANCOMYCIN 125 MG/2.5 ML UDL PO SCH ×2 (08:05→20:11)
[2016-12-05] MEDS: SENNOSIDES/DOCUSATE SODIUM TAB PO SCH ×2 (08:06→20:18)
[2016-12-05] MEDS ORDERED: clonazePAM 0.5 MG TAB PO PRN (08:06)
[2016-12-05] MEDS: GABAPENTIN 400 MG CAP PO SCH ×2 (08:15→20:12)
[2016-12-05] MEDS: FLUTICASONE NASAL 120 SPRAYS/16 GM MDI EACHNARE SCH (08:24)
[2016-12-05] MEDS: DIAZEPAM 5 MG TAB PO PRN ×2 (08:39→18:07)
[2016-12-05] MEDS: VERAPAMIL ER 180 MG TAB PO SCH (08:39)
[2016-12-05] MEDS: PANTOPRAZOLE SODIUM 40 MG TAB PO SCH (08:45)
[2016-12-05] MEDS: VITAMIN B COMPLEX 1 EA CAP/TAB PO SCH (08:45)
[2016-12-05] MEDS ORDERED: NON-FORMULARY NEW DRUG (Omeprazole [Prilosec 20 Mg] 20 MG) PO SCH (09:00)
[2016-12-05] MEDS ORDERED: VERAPAMIL HCL 180 MG PO SCH (09:00)
--- NOTE | 2016-12-05 13:20 | PCMIDPN ---
Assessment/Plan: Assessment/Plan: 1. Post op deep wound infection t12/L1 region: - operative note reviewed - Aspirate in NSG office with GPc on GS, and operative specimens with GPC noted on GS as well -Cultures in progress--will follow -Currently on IV vanco - Blood cx pending -Reviewed labs/cx with patient -Discussed plan of care - wbc, creatinine stable - will order vanco trough -care coordinated with RN. 2. Hx of c. diff -currently on PO vanco, suppressive dosing 3. Recent T12-L1 TLIF with SI fusion on 11/18/16 Meds vanco 1gm IV q12-12/04 vanco 125mg PO q12 Subjective: Afebrile. intermittent back spasms. states at her baseline, she has occasional loose stools. denies sob, cough. drain noted. Objective: Vital Signs Temp Pulse Resp BP Pulse Ox 37.0 C 84 16 137/63 H 96 12/05/16 12:00 12/05/16 12:00 12/05/16 12:00 12/05/16 12:00 12/05/16 12:00 Microbiology 12/04/16 18:45 Gram Stain - Final Back - Aspirate Laboratory Results 12/05/16 05:50 12/05/16 05:50 12/04/16 12/05/16 12/06/16 05:59 05:59 05:59 Intake Total 1160 400 Output Total 455 Balance 705 400 - Physical Exam General Appearance: alert, no apparent distress Respiratory: lungs clear Cardiac/Chest: regular rate, rhythm Extremities: other (no swelling) Back: other (incision not examined. SELENE drain note, with serosangunous drainage. ) ICD10 Worksheet Patient Problems: Problems Problem Status Onset C. difficile diarrhea Acute 01/21/15 ESBL (extended spectrum beta-lactamase) producing bacteria infection Acute 02/05 Lumbago Acute Radiculopathy Acute
--- NOTE | 2016-12-05 16:50 | ASMTCMCOM ---
CM Note CM Note Notes: Pt here for wound infection, lives w/ who helps w/ADLs. Cleared by PT/OT for home, unless needs IV abx, pt will dc home w/support of when medically stable. CM available for any changes. Date Signed: 12/05/2016 04:49 PM Electronically Signed By:Rebecca Plata RN
[2016-12-05] MEDS: GEMFIBROZIL 600 MG TAB PO SCH (18:08)
[2016-12-05] MEDS ORDERED: morphINE SR 15 MG TAB PO ONE (19:00)
[2016-12-05] MEDS: ROSUVASTATIN CALCIUM 20 MG TAB PO SCH (20:12)
[2016-12-06] MEDS: DIAZEPAM 5 MG TAB PO PRN ×3 (01:57→19:04)
[2016-12-06] MEDS: oxyCODONE IR 5 MG TAB PO PRN ×6 (02:08→21:00)
[2016-12-06] MEDS: METHOCARBAMOL 750 MG TAB PO PRN ×2 (05:38→15:30)
[2016-12-06] MEDS: VANCOMYCIN HCL/NORMAL SALINE 250 ML IV SCH ×2 (07:10→18:18)
[2016-12-06] MEDS: ENOXAPARIN 40 MG/0.4 ML SYR SC SCH (08:58)
[2016-12-06] MEDS: VANCOMYCIN 125 MG/2.5 ML UDL PO SCH ×2 (09:00→20:58)
[2016-12-06] MEDS: GABAPENTIN 400 MG CAP PO SCH ×2 (09:04→20:59)
[2016-12-06] MEDS: VITAMIN B COMPLEX 1 EA CAP/TAB PO SCH (09:05)
[2016-12-06] MEDS: GEMFIBROZIL 600 MG TAB PO SCH ×2 (09:05→17:33)
[2016-12-06] MEDS: VERAPAMIL ER 180 MG TAB PO SCH (09:05)
[2016-12-06] MEDS: PANTOPRAZOLE SODIUM 40 MG TAB PO SCH (09:06)
[2016-12-06] MEDS: POLYETHYLENE GLYCOL 3350 17 GM PKT PO SCH ×3 (09:14→20:57)
[2016-12-06] MEDS: SENNOSIDES/DOCUSATE SODIUM TAB PO SCH ×2 (09:14→20:59)
--- NOTE | 2016-12-06 09:24 | SOAPPROG ---
SOAP Progress Note Assessment/Plan: Assessment: 71 yo F POD #2 incision and drainage of T12/L1 deep wound infection Plan: stable purulent fluid extended below facia to the hardware cultures enterococus, on vanco per ID SELENE x 1 scd/evgeny/lovenox for DVT prophylaxis will add mscontin for night time back pain and valium for spasms appreciate ID input please call with neuro changes 12/04/16 19:09 12/04/16 19:12 12/05/16 07:45 12/05/16 07:50 12/06/16 09:23 Subjective: spasms improving, no leg pain, no weakness. Objective: Vital Signs Temp Pulse Resp BP Pulse Ox 36.6 C 79 16 126/69 H 93 12/06/16 07:55 12/06/16 07:55 12/06/16 07:55 12/06/16 07:55 12/06/16 07:55 Microbiology 12/04/16 18:45 Gram Stain - Final Back - Aspirate 12/04/16 18:45 Mycobacterial Smear (GUY) - Final Back - Aspirate Laboratory Results 12/05/16 05:50 12/05/16 05:50 12/05/16 12/06/16 12/07/16 05:59 05:59 05:59 Intake Total 1160 1250 Output Total 455 20 Balance 705 1230 AAOx4, +FC PERRL, EOMI, no facial droop 5/5 + light touch C/D/I ICD10 Worksheet Patient Problems: Problems Problem Status Onset C. difficile diarrhea Acute 01/21/15 ESBL (extended spectrum beta-lactamase) producing bacteria infection Acute 02/05 Lumbago Acute Radiculopathy Acute
--- NOTE | 2016-12-06 09:24 | PCMIDPN ---
Assessment/Plan: Assessment/Plan: 1. Post op deep wound infection t12/L1 region: - operative note reviewed - Aspirate in NSG office with GPc on GS, Culture with 4+ Enterococcus fecalis -operative specimens with GPC noted on GS, culture in progress -Currently on IV vanco. Vanco trough at 10.9 yesterday. Likely will accumulate. Will recheck tomorrow. - Blood cx pending -Reviewed labs/cx with patient, -Discussed plan of care - Recheck labs in Am. -has picc line in place. will require prolonged course of antibiotics. -care coordinated with RN. 2. Hx of c. diff -currently on PO vanco, suppressive dosing 3. Recent T12-L1 TLIF with SI fusion on 11/18/16 Meds vanco 1gm IV q12-12/04 vanco 125mg PO q12 Subjective: afebrile. feeling better each day. intermittent back spasms still but not as frequent. denies sob, abd pain. has soft stools. at bedside. Objective: Vital Signs Temp Pulse Resp BP Pulse Ox 36.6 C 79 16 126/69 H 93 12/06/16 07:55 12/06/16 07:55 12/06/16 07:55 12/06/16 07:55 12/06/16 07:55 Microbiology 12/04/16 18:45 Gram Stain - Final Back - Aspirate 12/04/16 18:45 Mycobacterial Smear (GUY) - Final Back - Aspirate Laboratory Results 12/05/16 05:50 12/05/16 05:50 12/05/16 12/06/16 12/07/16 05:59 05:59 05:59 Intake Total 1160 1250 Output Total 455 20 Balance 705 1230 - Physical Exam General Appearance: alert, no apparent distress Respiratory: lungs clear Cardiac/Chest: regular rate, rhythm Extremities: other (RUE picc line), No swelling Abdomen: normal bowel sounds, non-tender, soft, No distended Back: other (dressing noted. SELENE drain with serosanginous drainage) ICD10 Worksheet Patient Problems: Problems Problem Status Onset C. difficile diarrhea Acute 01/21/15 ESBL (extended spectrum beta-lactamase) producing bacteria infection Acute 02/05 Lumbago Acute Radiculopathy Acute
[2016-12-06] MEDS: FLUTICASONE NASAL 120 SPRAYS/16 GM MDI EACHNARE SCH (10:52)
[2016-12-06] MEDS: ROSUVASTATIN CALCIUM 20 MG TAB PO SCH (21:01)
[2016-12-06] MEDS: morphINE SR 15 MG TAB PO SCH (21:01)
[2016-12-07] MEDS: VANCOMYCIN HCL/NORMAL SALINE 250 ML IV SCH ×2 (06:28→17:38)
[2016-12-07] MEDS: DIAZEPAM 5 MG TAB PO PRN ×3 (06:51→20:04)
[2016-12-07] MEDS: oxyCODONE IR 5 MG TAB PO PRN ×3 (06:51→21:10)
[2016-12-07] MEDS: VITAMIN B COMPLEX 1 EA CAP/TAB PO SCH (08:36)
[2016-12-07] MEDS: PANTOPRAZOLE SODIUM 40 MG TAB PO SCH (08:36)
[2016-12-07] MEDS: METHOCARBAMOL 750 MG TAB PO PRN ×2 (08:36→15:58)
[2016-12-07] MEDS: traMADol 50 MG TAB PO PRN (08:36)
[2016-12-07] MEDS: VERAPAMIL ER 180 MG TAB PO SCH (08:37)
[2016-12-07] MEDS: VANCOMYCIN 125 MG/2.5 ML UDL PO SCH ×2 (08:37→20:05)
[2016-12-07] MEDS: ENOXAPARIN 40 MG/0.4 ML SYR SC SCH (08:37)
[2016-12-07] MEDS: GEMFIBROZIL 600 MG TAB PO SCH ×2 (08:37→17:38)
[2016-12-07] MEDS: GABAPENTIN 400 MG CAP PO SCH ×2 (08:37→20:04)
[2016-12-07] MEDS: FLUTICASONE NASAL 120 SPRAYS/16 GM MDI EACHNARE SCH (08:38)
[2016-12-07] MEDS: POLYETHYLENE GLYCOL 3350 17 GM PKT PO SCH ×3 (08:38→21:11)
[2016-12-07] MEDS: SENNOSIDES/DOCUSATE SODIUM TAB PO SCH ×2 (08:38→20:04)
--- NOTE | 2016-12-07 08:58 | SOAPPROG ---
SOAP Progress Note Assessment/Plan: Assessment: 71 yo F POD #3 incision and drainage of T12/L1 deep wound infection Plan: stable purulent fluid extended below facia to the hardware cultures enterococus, on vanco per ID SELENE x 1 scd/evgeny/lovenox for DVT prophylaxis will add mscontin for night time back pain and valium for spasms appreciate ID input home with C once abx finalized by ID please call with neuro changes 12/04/16 19:09 12/04/16 19:12 12/05/16 07:45 12/05/16 07:50 12/06/16 09:23 12/07/16 08:57 Subjective: back pain improving, no leg pain, no weakness. Objective: Vital Signs Temp Pulse Resp BP Pulse Ox 36.8 C 74 16 132/62 H 93 12/07/16 07:59 12/07/16 07:59 12/07/16 07:59 12/07/16 07:59 12/07/16 07:59 Microbiology 12/04/16 18:45 Gram Stain - Final Back - Aspirate Laboratory Results 12/05/16 05:50 12/05/16 05:50 12/06/16 12/07/16 12/08/16 05:59 05:59 05:59 Intake Total 1250 1500 Output Total 20 2 320 Balance 1230 1498 -320 AAOX4, +FC PERRL, EOMI, no facial droop 5/5 + light touch C/D/I ICD10 Worksheet Patient Problems: Problems Problem Status Onset C. difficile diarrhea Acute 01/21/15 ESBL (extended spectrum beta-lactamase) producing bacteria infection Acute 02/05 Lumbago Acute Radiculopathy Acute
[2016-12-07] MEDS: ACETAMINOPHEN 325 MG TAB PO PRN (15:58)
--- NOTE | 2016-12-07 16:50 | ASMTCMCOM ---
CM Note CM Note Notes: Pt s/p I&D. Pt has had [facility] and [facility] in the past. Referrals sent to both for possible IV ABX need at d/c. Date Signed: 12/07/2016 04:50 PM Electronically Signed By:MELLY eDwitt
--- NOTE | 2016-12-07 17:44 | PCMIDPN ---
Assessment/Plan: Assessment/Plan: * Postoperative deep lumbar wound infection status post debridement: Operative culture showing growth of Enterococcus faecalis and Finegoldia. Await susceptibility profile on Enterococcus and have asked micro lab to send out Finegoldia for susceptibility testing to include penicillin, ampicillin and doxycycline. Anticipate 8 weeks of IV antibiotic therapy followed by oral antibiotic suppression. Assess basic metabolic profile in a.m. while on vancomycin. * History of C difficile: Continue oral vancomycin suppression. 12/07/16 17:40 12/07/16 17:41 12/07/16 17:42 12/07/16 17:43 Subjective: Patient feels tired postoperatively. Chronic diarrhea which is unchanged. Objective: Vital Signs Temp Pulse Resp BP Pulse Ox 36.8 C 77 16 138/66 H 92 12/07/16 07:59 12/07/16 16:00 12/07/16 16:00 12/07/16 16:00 12/07/16 16:00 Microbiology 12/04/16 18:45 Gram Stain - Final Back - Aspirate 12/04/16 18:45 Mycobacterial Smear (GUY) - Final Back - Aspirate Laboratory Results 12/05/16 05:50 12/05/16 05:50 12/06/16 12/07/16 12/08/16 05:59 05:59 05:59 Intake Total 1250 1500 Output Total 20 2 320 Balance 1230 1498 -320 Vancomycin # 3 Oral vancomycin suppression Operative cultures with growth of Enterococcus faecalis and Finegoldia Outpatient cultures with growth of Enterococcus faecalis Laboratory Tests 12/06/16 05:30 Vancomycin Trough 10.9 - Physical Exam General Appearance: alert, no apparent distress EENT: No thrush, No conjunctival petechiae Cardiac/Chest: regular rate, rhythm Abdomen: non-tender, No distended Back: other (Staple line intact without erythema or drainage; SELENE drain with serosanguineous output) ICD10 Worksheet Patient Problems: Problems Problem Status Onset C. difficile diarrhea Acute 01/21/15 ESBL (extended spectrum beta-lactamase) producing bacteria infection Acute 02/05 Lumbago Acute Radiculopathy Acute
[2016-12-07] MEDS: morphINE SR 15 MG TAB PO SCH (20:04)
[2016-12-07] MEDS: ROSUVASTATIN CALCIUM 20 MG TAB PO SCH (20:05)
[2016-12-07] MEDS ORDERED: ESTRADIOL 42.5 GM CRTUBE VG SCH (22:00)
[2016-12-08] MEDS: oxyCODONE IR 5 MG TAB PO PRN ×5 (04:42→19:36)
[2016-12-08] MEDS: METHOCARBAMOL 750 MG TAB PO PRN ×3 (04:43→20:08)
[2016-12-08 05:35] LABS: ANION GAP 10 mEq/L (8-16); CALCIUM 9.3 mg/dL (8.5-10.4); CARBON DIOXIDE 24 mEq/l (22-31); CHLORIDE 106 mEq/L (97-110); CREATININE 0.7 mg/dL (0.6-1.0); GLOMERULAR FILTRATION RATE > 60; GLUCOSE 89 mg/dL (70-100); POTASSIUM 4.1 mEq/L (3.5-5.2); SODIUM 140 mEq/L (134-144)
[2016-12-08] MEDS: VANCOMYCIN HCL/NORMAL SALINE 250 ML IV SCH ×2 (05:52→17:56)
--- NOTE | 2016-12-08 07:18 | NEUSURGPN ---
Assessment/Plan: Assessment: 71 yo F POD #4 incision and drainage of T12/L1 deep wound infection Plan: stable purulent fluid extended below fascia to the hardware cultures + for enterococcus, finegoldia - on vanco per ID SELENE x 1 - scant discharge overnight scd/evgeny/lovenox for DVT prophylaxis Pain management - continue current management appreciate ID input home with C once abx finalized by ID please call with neuro changes D/w Dr Edward Subjective: Pt resting in bed, c/o back spasms Objective: AAOx3 NAD VSS MAEx4 Motor 5/5 BLE Incision cdi - dressing and bernardino in place Jpx1 with scant serosanguineous dc in bulb Urinary Catheter in Place: No - Physician Discussed Patient with : [facility] Physical Exam - Vitals, I&O, Labs I and O 12/07/16 12/08/16 12/09/16 05:59 05:59 05:59 Intake Total 1500 610 Output Total 2 345 Balance 1498 265 Intake: Oral (ml) 1500 500 IV Intake (ml) 110 Output: Urine (ml) 2 300 Toilet 2 300 SELENE Drain Output (ml) 45 Back Nils Craven 45 Other: Intake Quantity Yes Sufficient Number of Voids Toilet 1 1 Microbiology 12/04/16 18:45 Gram Stain - Final Back - Aspirate 12/04/16 18:45 Mycobacterial Smear (GUY) - Final Back - Aspirate Vital Signs Temp Pulse Resp BP Pulse Ox 36.9 C 75 16 124/65 H 93 12/08/16 00:00 12/08/16 00:00 12/08/16 00:00 12/08/16 00:00 12/08/16 00:00 Laboratory Results 12/05/16 05:50 12/08/16 05:00 ICD10 Worksheet Patient Problems: Problems Problem Status Onset C. difficile diarrhea Acute 01/21/15 ESBL (extended spectrum beta-lactamase) producing bacteria infection Acute 02/05 Lumbago Acute Radiculopathy Acute
--- NOTE | 2016-12-08 08:45 | PCMIDPN ---
Assessment/Plan: Assessment/Plan: 1. Post op deep wound infection t12/L1 region: - operative note reviewed. Wash out on 12/04/16 - Aspirate in NSG office with GPc on GS, Culture with 4+ Enterococcus fecalis -operative specimens with GPC noted on GS, culture with 4+ E. fecalis and 4+ F. magna -Currently on IV vanco. Vanco trough at 10.9 on Wednesday. Likely will accumulate. Will recheck tomorrow. - Blood cx ngtd -Reviewed labs/cx with patient -Discussed plan of care - Creatinine stable. Follow labs. will add crp. -has picc line in place. will require prolonged course of antibiotics. -care coordinated with RN. 2. Hx of c. diff -currently on PO vanco, suppressive dosing 3. Recent T12-L1 TLIF with SI fusion on 11/18/16 Meds vanco 1gm IV q12-12/04 vanco 125mg PO q12 Subjective: afebrile. feeing better each day. still with intermittent back spasms, maybe less intense compared to before. alissa sob, denies abd pain. bowel movements at baseline for patient. denies numbness/tingling down extremities. drain in place. Objective: Vital Signs Temp Pulse Resp BP Pulse Ox 36.7 C 77 18 132/64 H 90 L 12/08/16 07:30 12/08/16 07:30 12/08/16 07:30 12/08/16 07:30 12/08/16 07:30 Microbiology 12/04/16 18:45 Gram Stain - Final Back - Aspirate 12/04/16 18:45 Mycobacterial Smear (GUY) - Final Back - Aspirate Laboratory Results 12/05/16 05:50 12/08/16 05:00 12/07/16 12/08/16 12/09/16 05:59 05:59 05:59 Intake Total 1500 610 Output Total 2 345 Balance 1498 265 - Physical Exam General Appearance: alert, no apparent distress Respiratory: lungs clear Cardiac/Chest: regular rate, rhythm Extremities: No swelling Abdomen: normal bowel sounds, non-tender, soft, No distended Back: other (charissa drain: bloody drainage. minimal) Skin: No erythema ICD10 Worksheet Patient Problems: Problems Problem Status Onset C. difficile diarrhea Acute 01/21/15 ESBL (extended spectrum beta-lactamase) producing bacteria infection Acute 02/05 Lumbago Acute Radiculopathy Acute
[2016-12-08] MEDS: GABAPENTIN 400 MG CAP PO SCH ×2 (08:47→20:07)
[2016-12-08] MEDS: VITAMIN B COMPLEX 1 EA CAP/TAB PO SCH (08:48)
[2016-12-08] MEDS: GEMFIBROZIL 600 MG TAB PO SCH ×2 (08:48→17:56)
[2016-12-08] MEDS: DIAZEPAM 5 MG TAB PO PRN ×2 (08:48→16:26)
[2016-12-08] MEDS: PANTOPRAZOLE SODIUM 40 MG TAB PO SCH (08:48)
[2016-12-08] MEDS: VERAPAMIL ER 180 MG TAB PO SCH (08:49)
[2016-12-08] MEDS: ENOXAPARIN 40 MG/0.4 ML SYR SC SCH (08:50)
[2016-12-08] MEDS: SENNOSIDES/DOCUSATE SODIUM TAB PO SCH ×2 (08:50→20:07)
[2016-12-08] MEDS: VANCOMYCIN 125 MG/2.5 ML UDL PO SCH ×2 (08:50→20:07)
[2016-12-08] MEDS: FLUTICASONE NASAL 120 SPRAYS/16 GM MDI EACHNARE SCH (08:54)
[2016-12-08] MEDS: POLYETHYLENE GLYCOL 3350 17 GM PKT PO SCH ×4 (08:54→20:18)
--- NOTE | 2016-12-08 15:38 | ASMTCMCOM ---
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 Date Signed: 12/08/2016 03:37 PM Electronically Signed By:MELLY Pereira
[2016-12-08 16:30] VITALS: PULSE 80
[2016-12-08] MEDS: traMADol 50 MG TAB PO PRN (18:22)
[2016-12-08] MEDS: ROSUVASTATIN CALCIUM 20 MG TAB PO SCH (20:08)
[2016-12-08] MEDS: morphINE SR 15 MG TAB PO SCH (20:09)
[2016-12-09] MEDS: oxyCODONE IR 5 MG TAB PO PRN ×4 (05:35→16:26)
[2016-12-09] MEDS: DIAZEPAM 5 MG TAB PO PRN ×2 (05:37→13:33)
[2016-12-09 06:26] LABS: % IMMATURE GRANULYOCYTES 0.6 % (0.0-1.1); ABSOLUTE IMMATURE GRANULOCYTES 0.03 10^3/uL (0.00-0.10); ADD DIFF? NO; ADD MORPH? NO; ADD SCAN? NO; ATYPICAL LYMPHOCYTE FLAG 0 (0-99); FRAGMENT RBC FLAG 0 (0-99); HEMATOCRIT 30.1 % (38.0-47.0); HEMOGLOBIN 9.9 g/dL (12.6-16.3); LEFT SHIFT FLG 0 (0-99); LIPEMIA HEMOLYSIS FLAG 80 (0-99); MEAN CELL HEMOGLOBIN CONCENTR. 32.9 g/dL (32.4-36.7); MEAN CELL VOLUME 94.4 fL (81.5-99.8); MEAN PLATELET VOLUME 8.9 fL (8.7-11.7); PLATELET CLUMPS FLAG 0 (0-99); PLATELET COUNT 389 10^3/uL (150-400); RED BLOOD CELL COUNT 3.19 10^6/uL (4.18-5.33); RED CELL DISTRIBUTION WIDTH 13.2 % (11.5-15.2)
[2016-12-09 07:44] LABS: ALANINE AMINOTRANSFERASE 25 IU/L (9-52); ALBUMIN 2.9 g/dL (3.5-5.0); ALKALINE PHOSPHATASE 83 IU/L (38-126); ANION GAP 9 mEq/L (8-16); ASPARTATE AMINOTRANSFERASE 20 IU/L (14-46); BILIRUBIN,TOTAL 0.4 mg/dL (0.1-1.4); C-REACTIVE PROTEIN 65.6 mg/L (<10.0); CALCIUM 8.9 mg/dL (8.5-10.4); CARBON DIOXIDE 25 mEq/l (22-31); CHLORIDE 106 mEq/L (97-110); CREATININE 0.7 mg/dL (0.6-1.0); GLOMERULAR FILTRATION RATE > 60; GLUCOSE 91 mg/dL (70-100); POTASSIUM 3.9 mEq/L (3.5-5.2); SODIUM 140 mEq/L (134-144); TOTAL PROTEIN 5.2 g/dL (6.3-8.2)
[2016-12-09] MEDS: VERAPAMIL ER 180 MG TAB PO SCH (07:45)
[2016-12-09] MEDS: SENNOSIDES/DOCUSATE SODIUM TAB PO SCH (07:45)
[2016-12-09] MEDS: POLYETHYLENE GLYCOL 3350 17 GM PKT PO SCH ×2 (07:45→16:27)
[2016-12-09] MEDS: ENOXAPARIN 40 MG/0.4 ML SYR SC SCH (07:46)
[2016-12-09] MEDS: traMADol 50 MG TAB PO PRN ×2 (07:46→15:27)
[2016-12-09] MEDS: GABAPENTIN 400 MG CAP PO SCH (07:47)
[2016-12-09] MEDS: GEMFIBROZIL 600 MG TAB PO SCH (07:47)
[2016-12-09] MEDS: METHOCARBAMOL 750 MG TAB PO PRN ×2 (07:47→15:31)
[2016-12-09] MEDS: PANTOPRAZOLE SODIUM 40 MG TAB PO SCH (07:48)
[2016-12-09] MEDS: VITAMIN B COMPLEX 1 EA CAP/TAB PO SCH (07:48)
--- NOTE | 2016-12-09 08:30 | SOAPPROG ---
SOAP Progress Note Assessment/Plan: Assessment: Assessment: 71 yo F POD #5 incision and drainage of T12/L1 deep wound infection Plan: cultures + for enterococcus, finegoldia - on vanco per ID SELENE x 1 - scant discharge overnight scd/evgeny/lovenox for DVT prophylaxis Pain management - continue current management appreciate ID input home with [facility] once abx finalized by ID please call with neuro changes Subjective: awake, alert, pain well controlled. She is feeling better since having surgery. She denies any new issues. Objective: Vital Signs Temp Pulse Resp BP Pulse Ox 36.9 C 80 16 141/67 H 100 12/09/16 07:42 12/09/16 07:42 12/09/16 07:42 12/09/16 07:42 12/09/16 07:42 Microbiology 12/04/16 18:45 Gram Stain - Final Back - Aspirate 12/04/16 18:45 Mycobacterial Smear (GUY) - Final Back - Aspirate Laboratory Results 12/09/16 05:59 12/09/16 05:59 12/08/16 12/09/16 12/10/16 05:59 05:59 05:59 Intake Total 610 840 Output Total 345 Balance 265 840 Dressing: CDI Neuro: SETH, Sens +LT ambulatory ICD10 Worksheet Patient Problems: Problems Problem Status Onset C. difficile diarrhea Acute 01/21/15 ESBL (extended spectrum beta-lactamase) producing bacteria infection Acute 02/05 Lumbago Acute Radiculopathy Acute
--- NOTE | 2016-12-09 09:17 | PCMIDPN ---
Assessment/Plan: # Wound Infection at T12-L1 surgical site PCN-S enterococcus + Finegoldia --could switch Vancomycin to PCN, but will hold off until finegoldia susceptibilities are back --sensi on finegolida not likely back for couple weeks --patient going to alf facility, vancomycin orders were written, follow-up appointments established # H/O Cdiff: suppressive vanco Medication Vancomycin 1 g IV q.12, # 5 vancomycin 125mg PO BID micro 12/04 lumbar aspirate: Enterococcus ampicillin GUY= 2, penicillin GUY = 4, vancomycin GUY =1 12/04 lumbar aspirate from the OR: Enterococcus and Finegoldia susceptibilities pending Subjective: Patient expressing desire to go to rehab Objective: Vital Signs Temp Pulse Resp BP Pulse Ox 36.9 C 80 16 141/67 H 100 12/09/16 07:42 12/09/16 07:42 12/09/16 07:42 12/09/16 07:42 12/09/16 07:42 Microbiology 12/04/16 18:45 Gram Stain - Final Back - Aspirate 12/04/16 18:45 Mycobacterial Smear (GUY) - Final Back - Aspirate Laboratory Results 12/09/16 05:59 12/09/16 05:59 12/08/16 12/09/16 12/10/16 05:59 05:59 05:59 Intake Total 610 840 Output Total 345 Balance 265 840 C-Reactive Protein 65.6 mg/L (<10.0) H 12/09/16 05:59 - Physical Exam General Appearance: alert, no apparent distress EENT: No scleral icterus Respiratory: normal breath sounds, No accessory muscle use Cardiac/Chest: regular rate, rhythm Extremities: No pedal edema Abdomen: non-tender, soft Back: other (Significantly less induration at the wound, SELENE drain serosanguineous drainage) Skin: No rash - Time Spent With Patient Time Spent with Patient: greater than 35 minutes Time Spent with Patient: Greater than 35 minutes spent on this patients care, greater than 50% of time spent counseling, educating, and coordinating care regarding the above mentioned plan. ICD10 Worksheet Patient Problems: Problems Problem Status Onset C. difficile diarrhea Acute 01/21/15 ESBL (extended spectrum beta-lactamase) producing bacteria infection Acute 02/05 Lumbago Acute Radiculopathy Acute
[2016-12-09] MEDS ORDERED: VANCOMYCIN HCL/NORMAL SALINE 250 ML IV SCH (10:00)
[2016-12-09] MEDS: VANCOMYCIN 125 MG/2.5 ML UDL PO SCH (10:16)
[2016-12-09] MEDS: FLUTICASONE NASAL 120 SPRAYS/16 GM MDI EACHNARE SCH (12:18)
[2016-12-09] MEDS: VANCOMYCIN HCL/NORMAL SALINE 250 ML IV SCH (12:19)
--- NOTE | 2016-12-09 13:11 | PDIAF ---
- Diagnosis Diagnosis: Wound Infection at T12-L1 surgical site enterococcus + Finegoldia Code Status: Full Code - Medication Management Discharge Medications: Medications to Continue on Transfer Estradiol [Estrace Vaginal (*)] 0 gm VG MOWEFR@2200 10/08/14 [Last Taken ] Fluticasone Nasal [Flonase Nasal [place]] 1 sprays EACHNARE DAILY 10/08/14 [Last Taken 12/03/16] Gemfibrozil [Lopid 600 MG (*)] 600 mg PO BIDAC 10/08/14 [Last Taken 12/04/16] Herbals/Supplements -Info Only 1 ea PO DAILY 10/08/14 [Last Taken 10/03/14] Multivitamins [Multivitamin (*)] 1 each PO DAILY 10/08/14 [Last Taken 12/04/16] Omeprazole [Prilosec 20 mg] 20 mg PO DAILY 10/08/14 [Last Taken 12/04/16] Rosuvastatin Calcium [Crestor 20mg (*)] 10 mg PO HS 10/08/14 [Last Taken ] Verapamil HCl [Verapamil Sr] 180 mg PO DAILY 10/08/14 [Last Taken 12/04/16] Vitamin B Complex [B Complex] 1 each PO DAILY 10/08/14 [Last Taken 12/04/16] clonazePAM [klonoPIN (*)] 1 mg PO HS PRN 10/08/14 [Last Taken 12/03/16] traMADol [Ultram 50 mg (*)] 100 mg PO DAILY AT 6AM PRN 11/16/16 [Last Taken ] Methocarbamol [Robaxin 750 mg (*)] 750 mg PO QID PRN tab 11/19/16 [Last Taken 11/29/16] oxyCODONE IR [Oxycodone Ir (*)] 5 - 10 mg PO Q4HRS PRN tab 11/19/16 [Last Taken 11/19/16] Gabapentin [Neurontin 400 MG (*)] 1,200 mg PO BID 12/04/16 [Last Taken 12/04/16] morphINE SR [Ms Contin/Oramorph 15 mg (*)] 15 mg PO BID PRN 12/04/16 [Last Taken 12/03/16] Ordnance Keeper Antibiotics: vancomycin 1gm IV q12h Ordnance Keeper Antibiotic Stop Date: 02/05/17 Discharge Medications: Refer to the Discharge Home Medication list for PRN reason. PICC Care - Routine: Yes - Orders Services needed: Physical Therapy, Occupational Therapy Diet Recommendation: no restrictions on diet - Labs/Radiology BMP Date: 12/17/16 (every ) CBC Date: 12/14/16 (every wednesday) CMP Date: 12/14/16 (every wednesday) Vanco Trough Date and Time: 12/14 and 12/17 and every subsequent Wednesday and Call or Fax Lab and Imaging Results to: Evangelina Garvin MD [facility] for Infectious Diseases at fax [phone] - Follow Up Care Current Providers and Referrals: Handy Li MD [Primary Care Provider] - Evangelina Garvin MD [Medical Doctor] - 12/18/16 11:00 am
[2016-12-09 15:14] VITALS: BP 137/59; RESP 18; TEMP 99; O2SAT 91
--- NOTE | 2016-12-09 17:04 | ASMTCMCOM ---
CM Note CM Note Notes: Today pt decides to d/c to SNF since [facility] will be out of town. [facility] full, pt accepted at [facility]. [email or web address] will transport to [facility]. Karlie Brink will follow pt at [facility] for any IV antibiotic need at d/c from SNF. GAGANDEEP Nagel to call report. Orders sent in All[employer]. Date Signed: 12/09/2016 05:03 PM Electronically Signed By:MELLY Pereira
--- NOTE | 2016-12-10 10:21 | ASDISCHSUM ---
Discharge Information Plan Status:SNF Medically Cleared to Leave: Discharge Date:12/09/2016 04:35 PM D/C Disposition:Long Term Facility ADT D/C Disposition:Other Rehab, Not [facility] Projected Discharge Date:12/09/2016 11:00 AM Transportation at D/C:Family Discharge Delay Reason: Follow-Up Date:12/09/2016 11:00 AM Discharge Slot: Final Diagnosis: Placement Information Referral Type:Home Infusion Referral ID:[id number] Provider Name: Address 1: Phone Number: Address 2: Fax Number: City: Selection Factors: State: Referral Type:*Home Health Care Services Referral ID:[id number] Provider Name: Address 1: Phone Number: Address 2: Fax Number: City: Selection Factors: State: Referral Type:*Fdc/SNF Referral ID:[id number] Provider Name:[facility] Address 1:[address] Address 2: City:[place] Selection Factors: State:[place] Patient Contact Information Contact Name:DONAL Relationship: Address:[address] City:[place] Alternate Phone: [facility]/Zip Code:[place] [address] Email: Financial Information Financial Class: Primary Plan Desc:MEDICARE INPATIENT Primary Plan Number:[id number] Secondary Plan Desc:JAYLEN MORTON POS [facility] Secondary Plan Number:[id number] Assessment Information [facility] CM Progress Note CM Note CM Note Notes: Pt here for wound infection, lives w/ who helps w/ADLs. Cleared by PT/OT for home, unless needs IV abx, pt will dc home w/support of when medically stable. CM available for any changes. Date Signed: 12/05/2016 04:49 PM Electronically Signed By:Rebecca Plata RN BC CM Progress Note CM Note CM Note Notes: Pt s/p I&D. Pt has had [facility] and [facility] in the past. Referrals sent to both for possible IV ABX need at d/c. 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 Date Signed: 12/08/2016 03:37 PM Electronically Signed By:MELLY Pereira BC CM Progress Note CM Note CM Note Notes: Today pt decides to d/c to [facility] will be out of town. [facility] is full, pt accepted at [facility]. [facility] will transport to [facility]. Karlie Brink will follow pt at [facility] for any IV antibiotic need at d/c from [facility]. GAGANDEEP Nagel to call report. Orders sent in [employer]. Date Signed: 12/09/2016 05:03 PM Electronically Signed By:MELLY Pereira Intervention Information Intervention Type:*IM-Signed Date of Service:12/04/2016 02:35 PM Patient Type:Inpatient Staff Member:Zuly Prasad Hours: Discipline: Severity: Comment: Intervention Type:*IM-Signed Date of Service:12/09/2016 03:41 PM Patient Type:Inpatient Staff Member:Zuly Prasad Hours: Discipline: Severity: Comment:
== END 2016-12-09 16:35 | DRG 863 ==
LOC: F3N 14:27
PROVIDERS: ADMIT Neurological Surgery; ATTEND Neurological Surgery
PROC: 02HV43Z Insertion of Infusion Device into Superior Vena Cava, Percutaneous Endoscopic Approach (ICD-10-PCS; 2016-12-04)
PROC: 0J9700Z Drainage of Back Subcutaneous Tissue and Fascia with Drainage Device, Open Approach (ICD-10-PCS; principal; 2016-12-04 16:00)
DX: T81.4XXA Infection following a procedure, initial encounter (principal); B95.2 Enterococcus as the cause of diseases classified elsewhere; Z98.1 Arthrodesis status
CPT/HCPCS: 87186-90; 97161-GP; 97165-GO; C1751; G8978-GP-CI; G8979-GP-CI; G8980-GP-CI; G8987-GO-CI; G8989-GO-CI; J0171; J1170; J1650; J2250; J2543; J2704; J2997; J3010; J3370

== ENCOUNTER 2016-12-23 10:04 | Observation (INO) | payer OTHER ==
--- NOTE | 2016-12-23 10:16 | EDPHY ---
H & P Stated Complaint: back surg 1 mnth ago/hs inf/sob since yesterday post inj picc line Time Seen by Provider: 12/23/16 10:15 HPI/ROS: CHIEF COMPLAINT: Acute dyspnea HISTORY OF PRESENT ILLNESS: The patient presents to the ED with complaints of acute dyspnea. The patient's past medical history is significant for multiple back surgeries. She developed a postoperative infection several weeks ago. She has been receiving IV antibiotics through a PICC line. Yesterday her PICC line was reportedly thrombosed and she required a tPA infusion to clear the line. The patient reports that in the night she developed acute dyspnea with mild pleuritic pain. The patient denies asymmetric calf pain or swelling. The patient has no prior history of PE or DVT. REVIEW OF SYSTEMS: A comprehensive 10 point review of systems is otherwise negative aside from elements mentioned in the history of present illness. Source: Patient Exam Limitations: No limitations - Personal History Current Tetanus/Diphtheria Vaccine: Yes Tetanus Vaccine Date: <10 YRS AGO - Medical/Surgical History Hx Asthma: No Hx Chronic Respiratory Disease: No Hx Diabetes: No Hx Cardiac Disease: No Hx Renal Disease: No Hx Cirrhosis: No Hx Alcoholism: No Hx HIV/AIDS: No Hx Splenectomy or Spleen Trauma: No Other PMH: GERD;. t12 - l1 fusion w. sacrum surgery; 8 back surgeries over the 16-jennifer years;. migraines;. hyperlipidemia. hysterectomy. Foot Surgeries. arthritis 5 back surgeries - Social History Smoking Status: Former smoker Alcohol Use: None - Physical Exam Exam: General Appearance: Alert, no distress Eyes: Pupils equal and round no pallor or injection ENT, Mouth: Mucous membranes moist Respiratory: Mild tachypnea, lungs clear to auscultation bilaterally Cardiovascular: Regular rate and rhythm Gastrointestinal: Abdomen is soft and nontender, no masses, bowel sounds normal Neurological: A&O, normal motor function, normal sensory exam, normal cranial nerves Skin: Surgical incision clean dry and intact Musculoskeletal: Neck is supple nontender Extremities: PICC line noted in right upper extremity Constitutional: Initial Vital Signs Temperature (C) 37 C 12/23/16 10:13 Heart Rate 91 12/23/16 10:13 Respiratory Rate 22 H 12/23/16 10:13 Blood Pressure 144/62 H 12/23/16 10:13 O2 Sat (%) 99 12/23/16 10:13 O2 Delivery Mode Room Air Allergies/Adverse Reactions: No Known Drug Allergies Allergy (Unknown, Verified 12/23/16 10:12) SHRIMP Allergy (Severe, Uncoded 12/04/16 15:18) SWELLS ANYWHERE IT TOUCHES SEASONAL Allergy (Intermediate, Uncoded 12/04/16 15:18) RUNNY NOSE, ITCHY EYES Home Medications: Medication Instructions Recorded Estradiol [Estrace Vaginal (*)] 0 gm VG MOWEFR@2200 10/08/14 Fluticasone Nasal [Flonase Nasal 1 sprays EACHNARE DAILY 10/08/14 [place]] Gemfibrozil [Lopid 600 MG (*)] 600 mg PO BIDAC 10/08/14 Omeprazole [Prilosec 20 mg] 20 mg PO DAILY 10/08/14 Rosuvastatin Calcium [Crestor 20mg 10 mg PO HS 10/08/14 (*)] Verapamil HCl [Verapamil Sr] 180 mg PO DAILY 10/08/14 Vitamin B Complex [B Complex] 1 each PO DAILY 10/08/14 clonazePAM [klonoPIN (*)] 1 mg PO HS PRN 10/08/14 Gabapentin [Neurontin 400 MG (*)] 1,200 mg PO BID 12/04/16 Acetaminophen [Tylenol 325mg (*)] 650 mg PO Q4HRS PRN tab 12/09/16 Alteplase [Cathflo Activase 2 mg 2 mg IVP PRN PRN vial 12/09/16 (*)] Diazepam [Valium 5 MG (*)] 5 mg PO Q6HRS PRN tab 12/09/16 Enoxaparin [Lovenox 40 MG (*)] 40 mg SC DAILY syr 12/09/16 Methocarbamol [Robaxin 750 mg (*)] 750 mg PO QID PRN tab 12/09/16 Ondansetron HCl Pf [Zofran 4 mg 4 mg IVP Q4HRS PRN vial 12/09/16 Inj (*)] Ondansetron Odt [Zofran Odt 4 mg 4 mg PO Q4HRS PRN tab 12/09/16 (*)] Pantoprazole Sodium [Protonix 40mg 40 mg PO DAILY tab 12/09/16 (*)] Polyethylene Glycol 3350 [Miralax 17 gm PO TID pkt 12/09/16 17 gm (*)] Sennosides/Docusate Sodium 1 - 2 tab PO BID tab 12/09/16 [Senokot-S] Vancomycin [Vancocin Oral Liquid] 125 mg PO BID udl 12/09/16 morphINE SR [Ms Contin/Oramorph 15 15 mg PO HS tab 12/09/16 mg (*)] morphINE [morphINE 2mg/ml Inj (*)] 2 - 4 mg IVP Q1HR PRN syr 12/09/16 oxyCODONE IR [Oxycodone Ir (*)] 10 mg PO Q3H PRN tab 12/09/16 traMADol [Ultram 50 mg (*)] 100 mg PO Q6H PRN tab 12/09/16 Medical Decision Making - Diagnostics EKG Interpretation: EKG: Complete interpretation has been separately recorded in the [facility] archive. Summary impression: Sinus rate, rate 74 Imaging Results: Imaging Impressions Chest/Thorax CTA 12/23/16 10:50 Impression: 1. Small peripheral segmental/subsegmental right lower lobe pulmonary emboli. 2. Additional findings as above. Findings discussed with Dr. Edward Bowman on December 23, 2016 at 1213 hours. ED Course/Re-evaluation: The patient presents to the ED with complaints of pleuritic chest pain and dyspnea which has been present for the past 24 hours. The patient does a risk factor for PE given her immobility following spine surgery. The patient is noted to be hemodynamically stable. She has mild tachypnea. The patient was taken for a CT scan of the chest which does demonstrate low volume thromboembolic disease. The patient has no clinical evidence of right heart. The patient will be started on Lovenox. The patient's neurosurgeon Dr. Bean Munoz has been notified of the patient's diagnosis. He states there is no contraindication to anticoagulation. The Infectious Disease service will be notified of her admission to the hospital. Patient was re-evaluated at 1:15 p.m.. I have explained to her her diagnosis and plan for hospitalization. Consultation was made with Dr. Gurpreet Roth from the hospitalist service who will admit the patient. Differential Diagnosis: Differential diagnosis considered includes pulmonary embolism, pneumothorax, pneumonia, pleurisy, arrhythmia, heart failure - Data Points Laboratory Results: Laboratory Results 12/23/16 10:43 11/03/1012/23/16 12/23/16 10:43 10:43 10:39 WBC 6.29 10^3/uL 10^3/uL (3.80-9.50) RBC 3.51 10^6/uL L 10^6/uL (4.18-5.33) Hgb 10.9 g/dL L g/dL (12.6-16.3) POC Hgb 10.9 gm/dL L gm/dL (12.6-16.3) Hct 31.1 % L % (38.0-47.0) POC Hct 32 % L % (38-47) MCV 88.6 fL fL (81.5-99.8) MCH 31.1 pg pg (27.9-34.1) MCHC 35.0 g/dL g/dL (32.4-36.7) RDW 13.2 % % (11.5-15.2) Plt Count 502 10^3/uL H 10^3/uL (150-400) MPV 9.0 fL fL (8.7-11.7) Neut % (Auto) 71.1 % % (39.3-74.2) Lymph % (Auto) 14.6 % L % (15.0-45.0) [place] % (Auto) 11.8 % % (4.5-13.0) Eos % (Auto) 1.1 % % (0.6-7.6) Baso % (Auto) 1.1 % % (0.3-1.7) Nucleat RBC Rel Count 0.0 % % (0.0-0.2) Absolute Neuts (auto) 4.47 10^3/uL 10^3/uL (1.70-6.50) Absolute Lymphs (auto) 0.92 10^3/uL L 10^3/uL (1.00-3.00) Absolute Monos (auto) 0.74 10^3/uL 10^3/uL (0.30-0.80) Absolute Eos (auto) 0.07 10^3/uL 10^3/uL (0.03-0.40) Absolute Basos (auto) 0.07 10^3/uL 10^3/uL (0.02-0.10) Absolute Nucleated RBC 0.00 10^3/uL 10^3/uL (0-0.01) Immature Gran % 0.3 % % (0.0-1.1) Immature Gran # 0.02 10^3/uL 10^3/uL (0.00-0.10) POC Sodium 145 mEq/L H mEq/L (134-144) POC Potassium 3.4 mEq/L mEq/L (3.3-5.0) POC Chloride 111 mEq/L H mEq/L (97-110) POC BUN 7 mg/dL mg/dL (7-23) POC Creatinine 1.0 mg/dL mg/dL (0.6-1.0) POC Glucose 139 mg/dL H mg/dL (70-100) Troponin I < 0.012 ng/mL ng/mL (0.000-0.034) Point of Care Test Results: 12/23/16 10:39 POC Sodium 145 H POC Potassium 3.4 POC Chloride 111 H POC BUN 7 POC Creatinine 1.0 POC Glucose 139 H Departure - Departure Disposition: [facility] ([place], [place]) Inpatient Acute Clinical Impression: ESBL (extended spectrum beta-lactamase) producing bacteria infection Pulmonary embolism Qualifiers: Pulmonary embolism type: other Chronicity: acute Acute cor pulmonale presence: without acute cor pulmonale Qualified Code(s): I26.99 - Other pulmonary embolism without acute cor pulmonale Condition: Good
[2016-12-23 10:56] LABS: PLATELET COUNT 502 10^3/uL (150-400)
--- NOTE | 2016-12-23 11:20 | CPEKG ---
Heart Rate: 74 RR Interval: 811 P-R Interval: 216 QRSD Interval: 84 QT Interval: 420 QTC Interval: 466 P [place]: 65 QRS [place]: -12 T Wave [place]: 12 EKG Severity - OTHERWISE NORMAL ECG - EKG Impression: SINUS RHYTHM Electronically Signed By: Edward Bowman 23-Dec-2016 13:16:20
[2016-12-23] MEDS ORDERED: IOPAMIDOL (ISOVUE 370) 100 ML BTL IV ONE (11:21)
--- NOTE | 2016-12-23 13:19 | ASMTCMCOM ---
CM Note CM Note Notes: Ashley from [facility] called re patient arriving to the ER. Patient is currently followed by [facility] and Dr. Nayeli Garvin for IV antibiotics. Patient is now being admitted for further workup/treatment for a pulmonary embolism (PE). I have contacted Dr. Garvin and Dr. Li (patient's PCP to alert of admission). CM to follow with D/C planning Date Signed: 12/23/2016 01:18 PM Electronically Signed By:Cheri Lawton RN
--- NOTE | 2016-12-23 13:19 | ASMTCMCOM ---
CM Note CM Note Notes: Ashley from [facility] called re patient arriving to the ER. Patient is currently followed by [facility] and Dr. Nayeli Garvin for IV antibiotics. Patient is now being admitted for further workup/treatment for a pulmonary embolism (PE). I have contacted Dr. Garvin and Dr. Li (patient's PCP to alert of admission). CM to follow with D/C planning Date Signed: 12/23/2016 01:18 PM Electronically Signed By:Cheri Lawton RN
--- NOTE | 2016-12-23 13:19 | ASMTCMCOM ---
CM Note CM Note Notes: Ashley from [facility] called re patient arriving to the ER. Patient is currently followed by [facility] and Dr. Nayeli Garvin for IV antibiotics. Patient is now being admitted for further workup/treatment for a pulmonary embolism (PE). I have contacted Dr. Garvin and Dr. Li (patient's PCP to alert of admission). CM to follow with D/C planning Date Signed: 12/23/2016 01:18 PM Electronically Signed By:Cheri Lawton RN
[2016-12-23] MEDS: VANCOMYCIN 1.25 GM in D5W 250 ML IV SCH (14:23)
[2016-12-23] MEDS ORDERED: oxyCODONE IR 5 MG TAB PO ONE (14:59)
--- NOTE | 2016-12-23 15:00 | PCMIDPN ---
Assessment/Plan: # polymicrobial postoperative deep wound infection T12-L1 with Enterococcus and Finegoldia --continue vancomycin, dose given late today due to ER evaluation. Planned stop date 02/05/2017 # C diff, remote history. Patient is on suppressive dosing while on antibiotic therapy. No need for contact isolation # SOB --> possible PE appreciate detailed evaluation by hospitalists, possibly no PE Medication Vancomycin 1.25gm IV daily, Trough okay 12/21 vancomycin 125mg PO BID micro 12/04 lumbar aspirate: Enterococcus ampicillin GUY= 2, penicillin GUY = 4, vancomycin GUY =1 12/04 lumbar aspirate from the OR: Enterococcus and Finegoldia susceptibilities pending Subjective: 71 year old /White female who is under ID care for postoperative Wound Infection at T12-L1 surgical site enterococcus + Finegoldia. Also remote history of C diff. She was [facility] at [facility] but was recently discharged 01/20/2017. The last 24 hours she developed severe shortness of breath with difficulty sleeping and talking. She called our office and we recommended ER evaluation Objective: Vital Signs Temp Pulse Resp BP Pulse Ox 36.8 C 78 20 168/58 H 99 12/23/16 14:13 12/23/16 14:13 12/23/16 14:13 12/23/16 14:13 12/23/16 14:13 Laboratory Tests 12/21/16 11:30 Vancomycin Trough 13.0 Laboratory Tests 12/23/16 12/23/16 12/23/16 10:39 10:43 10:43 WBC 6.29 Hct 31.1 L Plt Count 502 H POC Creatinine 1.0 Troponin I < 0.012 - Physical Exam General Appearance: alert, no apparent distress Respiratory: No accessory muscle use Neck: supple Cardiac/Chest: regular rate, rhythm Abdomen: non-tender, soft Back: other (Back Incision completely healed without surrounding swelling, erythema) Neuro/Psych: alert, normal mood/affect, oriented x 3 - Line/s RUE PICC Lines: No drainage, No erythema ICD10 Worksheet Patient Problems: Problems Problem Status Onset ESBL (extended spectrum beta-lactamase) producing bacteria infection Acute 02/05 Pulmonary embolism Acute C. difficile diarrhea Acute 01/21/15 Lumbago Acute Radiculopathy Acute
[2016-12-23] MEDS ORDERED: traMADol 50 MG TAB PO PRN (15:49)
[2016-12-23] MEDS ORDERED: DIAZEPAM 5 MG TAB PO PRN (15:49)
[2016-12-23] MEDS ORDERED: clonazePAM 1 MG TAB PO PRN (15:49)
[2016-12-23] MEDS ORDERED: METHOCARBAMOL 750 MG TAB PO PRN (15:49)
[2016-12-23] MEDS ORDERED: ONDANSETRON 4 MG/2 ML VIAL IVP PRN (15:53)
[2016-12-23] MEDS ORDERED: ACETAMINOPHEN 325 MG TAB PO PRN (15:53)
--- NOTE | 2016-12-23 16:01 | PDGENHP ---
History and Physical History and Physical: CC: Chest pain and dyspnea HISTORY: This patient comes to the ER today complaining of a very vaguely described but primarily sharp discomfort in the upper anterior left chest wall that is aggravated by taking a deep breath. I am unable to determine from the patient whether this pain is present when she is not taking a deep breath. This is associated with a sense that she cannot take a deep breath and since that she is not getting enough air though she is able to get up and walk around as well as prior to the onset of the symptoms. The symptoms started yesterday during the day and has continued today. There has been no cough, no fever, no lightheadedness, no palpitations, no leg pain or leg swelling, nothing that really sounds like angina. Notably the patient had a lumbar spine surgery including sacroiliac fusions in late October here at this hospital, and then readmitted here in early November with a wound infection treated by incision drainage, and she is able to take IV antibiotics at home for the infection at this time. She is under the care of the [facility] for this. In the ER today she had negative troponin but had a chest CT that was read as positive for pulmonary emboli. She was given a dose of Eliquis admitted to the hospital ROS: A comprehensive 10 system review revealed no other significant findings. She is recovering well otherwise from her surgery and ambulating reasonably well. She had gone to rehabilitation inpatient from the hospital after her most recent surgery for the infection but she was discharged from there to home 3 days ago PAST MEDICAL HISTORY: Migraine headaches Multiple spine surgeries Uterine prolapse surgery ACL repair Foot surgeries Esophageal reflux Osteoarthritis FAMILY MEDICAL HISTORY: No pertinent or concerning medical history that she recalls at this time SOCIAL HISTORY: Lives with her No tobacco or alcohol MEDICATIONS: The patients list has been reconciled by our clinical pharmacist in the EMR. I have reviewed the list and ordered appropriate medicines. PHYSICAL EXAMINATION: Vital Signs: No fever, no hypotension, tachycardia or tachypnea Her oxygen saturation on room air was at 99% in the ER, she has been on oxygen since with 98-100% oxygen saturation Director Of Recruitment: Sinus in the ER Examination: General: alert, oriented, good mentation, relaxed Skin: warm, dry, good color, no rash HEENT: normal Neck: no mass or jvd Chest: In the area where the patient describes and points to her pain I can easily reproduce the same pain by pressing on the left anterior 2nd through 4th ribs and the upper sternum and she is obviously quite uncomfortable with this. 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 Carlos Kebede and Dr. Edward Cardona to get their opinions of the CT scan. Neither of these physicians has seen the patient nor are they asked at this time to consult on the patient. The CT scan is read by the original reading radiologist as having 2 small subsegmental pulmonary emboli in the right lower lobe. These are marked on the images with arose. Looking throughout the rest of the right and left lungs and the central vessels, I see no evidence of thromboembolic disease nor did Dr. Kebede or Brendan see such evidence of disease. Regarding the 2 reported emboli in the right lower lobe I myself am not convinced that these are real emboli nor was Dr. Cardona. Dr. Kebede felt that they could possibly be emboli. I ordered bilateral Doppler ultrasound of the legs and knees are negative for any thromboembolic disease. 12 LEAD EKG: My reading of the tracing is a normal 12 lead EKG ASSESSMENT: -left chest wall discomfort with dyspnea -question of 2 possible small pulmonary emboli right lower lobe -on antibiotics for recent postsurgical wound infection and spine with incision and drainage of her surgical wound earlier this month -recent lumbar spine surgery in October At this time I have not convinced that she has any thromboembolic disease. Certainly the abnormalities seen on the CT scan do not explain her symptoms of upper left chest wall pain since they are in the lower right lung. Nor is there any CT evidence of PEs in the left chest that could explain her presenting symptom. She does not have DVTs, does not have hypoxia, tachycardia , tachypnea, fever, cough, anxiety or other specifics to suggest PE in that way. She does have reproducible chest wall tenderness matching the location and quality and nature of her presenting pain. Clearly her presenting pain is some type of costochondral or other chest wall pain and can be treated locally. Whether she should be treated with anticoagulation for the 2 small abnormalities noted on the CT scan in the right lower lobe is the real question clinically. My current feeling is that I would not commit her to a several month course of anticoagulant for that particular abnormality. While we are treating her local chest wall pain overnight it is reasonable to observe her here in the hospital to watch and make sure changes did not occur that would raise further concern for thromboembolic disease. My partner Dr. francis will be taking over her care in the morning and I reviewed the details of the case at length with him and reviewed the CT scan images with him this evening. Notably as she had fusion surgery for her sacroiliac joints we cannot use nonsteroidal anti-inflammatories or steroids for her chest wall pain without 1st discussing this with the Neurosurgery team. I have prescribed a Lidoderm patch to this area and will see how she does over night with it. I have reviewed the patient's case in detail with Dr. Busby, Dr. Edward Cardona and Dr. Carlos Kebede She will need continued IV antibiotic therapy for her wound infection and Dr. Garvin has seen her here and ordered her antibiotics. Will need to rearrange for continuation of her antibiotics as she goes home. I have reviewed the patient's past medical records as part of this assessment, including previous hospital records from past admissions
[2016-12-23] MEDS: GEMFIBROZIL 600 MG TAB PO SCH (16:35)
[2016-12-23] MEDS: LIDOCAINE 5% 1 EA PATCH TD SCH (16:35)
[2016-12-23] MEDS ORDERED: FLUTICASONE NASAL 120 SPRAYS/16 GM MDI EACHNARE SCH (21:00)
[2016-12-23] MEDS ORDERED: ENOXAPARIN 80 MG/0.8 ML SYR SC SCH (21:00)
[2016-12-23] MEDS ORDERED: PATCH REMOVAL 1 EA PATCH TD SCH (21:00)
[2016-12-23] MEDS ORDERED: morphINE SR 15 MG TAB PO SCH (21:00)
[2016-12-23] MEDS ORDERED: ROSUVASTATIN CALCIUM 20 MG TAB PO SCH (21:00)
[2016-12-23] MEDS: GABAPENTIN 400 MG CAP PO SCH (21:35)
[2016-12-23] MEDS: VANCOMYCIN 125 MG/2.5 ML UDL PO SCH (21:37)
[2016-12-23] MEDS: ENOXAPARIN 80 MG/0.8 ML SYR SC SCH (21:40)
[2016-12-23] MEDS ORDERED: ESTRADIOL 42.5 GM CRTUBE VG SCH (22:00)
[2016-12-24 04:26] LABS: PLATELET COUNT 449 10^3/uL (150-400)
[2016-12-24] MEDS: GEMFIBROZIL 600 MG TAB PO SCH (08:04)
[2016-12-24] MEDS: GABAPENTIN 400 MG CAP PO SCH (08:05)
[2016-12-24] MEDS: ENOXAPARIN 80 MG/0.8 ML SYR SC SCH (08:06)
[2016-12-24] MEDS: VANCOMYCIN 125 MG/2.5 ML UDL PO SCH (08:06)
[2016-12-24] MEDS: LIDOCAINE 5% 1 EA PATCH TD SCH (08:08)
[2016-12-24] MEDS: oxyCODONE IR 5 MG TAB PO PRN ×2 (08:10→14:06)
[2016-12-24] MEDS ORDERED: PANTOPRAZOLE SODIUM 40 MG TAB PO SCH (09:00)
[2016-12-24] MEDS ORDERED: VERAPAMIL ER 180 MG TAB PO SCH (09:00)
[2016-12-24] MEDS ORDERED: VITAMIN B COMPLEX 1 EA CAP/TAB PO SCH (09:00)
--- NOTE | 2016-12-24 10:30 | PCMIDPN ---
Assessment/Plan: # polymicrobial postoperative deep wound infection T12-L1 with Enterococcus and Finegoldia --continue vancomycin, dose given late today due to ER evaluation. Planned stop date 02/05/2017 --interagency she completed for possible discharge. Patient already with follow -up appointment and was added to discharge planning tab # C diff, remote history. Patient is on suppressive dosing while on antibiotic therapy. No need for contact isolation # SOB/chest pain: Appreciate hospitalist evaluation Medication Vancomycin 1.25gm IV daily, Trough okay 12/21 vancomycin 125mg PO BID micro 12/04 lumbar aspirate: Enterococcus ampicillin GUY= 2, penicillin GUY = 4, vancomycin GUY =1 12/04 lumbar aspirate from the OR: Enterococcus and Finegoldia 12/24/16 11:30 Objective: Vital Signs Temp Pulse Resp BP Pulse Ox 36.8 C 66 20 138/65 H 96 12/24/16 07:52 12/24/16 07:52 12/24/16 07:52 12/24/16 08:05 12/24/16 07:52 Laboratory Results 12/24/16 04:00 12/24/16 04:00 12/23/16 12/24/16 12/25/16 05:59 05:59 05:59 Intake Total 1000 Balance 1000 ICD10 Worksheet Patient Problems: Problems Problem Status Onset ESBL (extended spectrum beta-lactamase) producing bacteria infection Acute 02/05 Pulmonary embolism Acute C. difficile diarrhea Acute 01/21/15 Lumbago Acute Radiculopathy Acute
--- NOTE | 2016-12-24 10:32 | PDIAF ---
- Diagnosis Diagnosis: Deep Wound Infection T12-L1 Code Status: Full Code - Medication Management Discharge Medications: Medications to Continue on Transfer Estradiol [Estrace Vaginal (*)] 1 venice VG BEENA@2200 10/08/14 [Last Taken ] Fluticasone Nasal [Flonase Nasal [place]] 2 sprays EACHNARE HS 10/08/14 [Last Taken 12/22/16] Gemfibrozil [Lopid 600 MG (*)] 600 mg PO BIDAC 10/08/14 [Last Taken 12/23/16] Omeprazole [Prilosec 20 mg] 20 mg PO DAILY 10/08/14 [Last Taken 12/23/16] Rosuvastatin Calcium [Crestor 20mg (*)] 10 mg PO HS 10/08/14 [Last Taken ] Verapamil HCl [Verapamil Sr] 180 mg PO DAILY 10/08/14 [Last Taken 12/23/16] Vitamin B Complex [B Complex] 1 each PO DAILY 10/08/14 [Last Taken 12/23/16] clonazePAM [klonoPIN (*)] 1 mg PO HS PRN 10/08/14 [Last Taken 12/22/16] Gabapentin [Neurontin 400 MG (*)] 1,200 mg PO BID 12/04/16 [Last Taken 12/23/16] Methocarbamol [Robaxin 750 mg (*)] 750 mg PO QID PRN tab 12/09/16 [Last Taken 1 Week Ago ~12/16/16] morphINE SR [Ms Contin/Oramorph 15 mg (*)] 15 mg PO HS tab 12/09/16 [Last Taken 12/20/16] Acetaminophen [Tylenol 325mg (*)] 325 mg PO DAILY PRN 12/23/16 [Last Taken Unknown] Diazepam [Valium 5 MG (*)] 5 mg PO Q8 PRN 12/23/16 [Last Taken 1 Week Ago ~12/16] Vancomycin HCl in Dextrose 5 % [Vancomycin 1.25 Gram/250Ml-D5w] 1.25 gm IV DAILY 12/23/16 [Last Taken 12/22/16] oxyCODONE IR [Oxycodone Ir (*)] 5 - 10 mg PO Q6HRS PRN 12/23/16 [Last Taken ] traMADol [Ultram 50 mg (*)] 50 - 100 mg PO Q6H PRN 12/23/16 [Last Taken Unknown] 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 PICC Care - Routine: Yes - Orders Services needed: Home Care, Registered Nurse Home Care Face to Face: I certify that this patient was under my care and that I had the required [id number] encounter meeting the encounter requirements on the discharge day. My findings support the fact that the patient is homebound as defined in Home Care Face to Face Continued: CMS Chapter 7 Medicare Benefits Manual 30.1.1 , The condition of the patient is such that there exists a normal inability to leave home and consequently, leaving home would require a considerable and taxing effort. - Labs/Radiology BMP Date: 12/31/16 (Every ) CBC w/diff Date: 12/28/16 (Every Wednesday) CMP Date: 12/28/16 (Every Wednesday) CRP Date: 12/28/16 (Every Wednesday) Vanco Trough Date and Time: Every Wednesday and starting 12/28/2016 and 12/31/2026 Call or Fax Lab and Imaging Results to: Evangelina Garvin MD [facility] at fax [phone] - Follow Up Care Current Providers and Referrals: Handy Li MD [Primary Care Provider] - As per Instructions Evangelina Garvin MD [Medical Doctor] - 01/05/17 1:30 pm
--- NOTE | 2016-12-24 10:32 | PDIAF ---
- Diagnosis Diagnosis: Deep Wound Infection T12-L1 Code Status: Full Code - Medication Management Discharge Medications: Medications to Continue on Transfer Estradiol [Estrace Vaginal (*)] 1 venice VG BEENA@2200 10/08/14 [Last Taken ] Fluticasone Nasal [Flonase Nasal [place]] 2 sprays EACHNARE HS 10/08/14 [Last Taken 12/22/16] Gemfibrozil [Lopid 600 MG (*)] 600 mg PO BIDAC 10/08/14 [Last Taken 12/23/16] Omeprazole [Prilosec 20 mg] 20 mg PO DAILY 10/08/14 [Last Taken 12/23/16] Rosuvastatin Calcium [Crestor 20mg (*)] 10 mg PO HS 10/08/14 [Last Taken ] Verapamil HCl [Verapamil Sr] 180 mg PO DAILY 10/08/14 [Last Taken 12/23/16] Vitamin B Complex [B Complex] 1 each PO DAILY 10/08/14 [Last Taken 12/23/16] clonazePAM [klonoPIN (*)] 1 mg PO HS PRN 10/08/14 [Last Taken 12/22/16] Gabapentin [Neurontin 400 MG (*)] 1,200 mg PO BID 12/04/16 [Last Taken 12/23/16] Methocarbamol [Robaxin 750 mg (*)] 750 mg PO QID PRN tab 12/09/16 [Last Taken 1 Week Ago ~12/16/16] morphINE SR [Ms Contin/Oramorph 15 mg (*)] 15 mg PO HS tab 12/09/16 [Last Taken 12/20/16] Acetaminophen [Tylenol 325mg (*)] 325 mg PO DAILY PRN 12/23/16 [Last Taken Unknown] Diazepam [Valium 5 MG (*)] 5 mg PO Q8 PRN 12/23/16 [Last Taken 1 Week Ago ~12/16] Vancomycin HCl in Dextrose 5 % [Vancomycin 1.25 Gram/250Ml-D5w] 1.25 gm IV DAILY 12/23/16 [Last Taken 12/22/16] oxyCODONE IR [Oxycodone Ir (*)] 5 - 10 mg PO Q6HRS PRN 12/23/16 [Last Taken ] traMADol [Ultram 50 mg (*)] 50 - 100 mg PO Q6H PRN 12/23/16 [Last Taken Unknown] 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 PICC Care - Routine: Yes - Orders Services needed: Home Care, Registered Nurse Home Care Face to Face: I certify that this patient was under my care and that I had the required [id number] encounter meeting the encounter requirements on the discharge day. My findings support the fact that the patient is homebound as defined in Home Care Face to Face Continued: CMS Chapter 7 Medicare Benefits Manual 30.1.1 , The condition of the patient is such that there exists a normal inability to leave home and consequently, leaving home would require a considerable and taxing effort. - Labs/Radiology BMP Date: 12/31/16 (Every ) CBC w/diff Date: 12/28/16 (Every Wednesday) CMP Date: 12/28/16 (Every Wednesday) CRP Date: 12/28/16 (Every Wednesday) Vanco Trough Date and Time: Every Wednesday and starting 12/28/2016 and 12/31/2026 Call or Fax Lab and Imaging Results to: Evangelina Garvin MD [facility] at fax [phone] - Follow Up Care Current Providers and Referrals: Handy Li MD [Primary Care Provider] - As per Instructions Evangelina Garvin MD [Medical Doctor] - 01/05/17 1:30 pm
--- NOTE | 2016-12-24 10:46 | ASMTCMCOM ---
CM Note CM Note Notes: Spoke w/pt, is current with [facility] for homecare (RN/PT) and [facility] for IV abx. Anticipate pt will dc home with same services. Current DC Plan: Dc home w/[facility] and [facility] Date Signed: 12/24/2016 10:46 AM Electronically Signed By:Rebecca Plata RN
[2016-12-24 11:58] VITALS: BP 137/71; PULSE 69; RESP 18; TEMP 98.1; O2SAT 95
[2016-12-24] MEDS ORDERED: WARFARIN SODIUM 5 MG TAB PO ONE (13:10)
[2016-12-24] MEDS: VANCOMYCIN 1.25 GM in D5W 250 ML IV SCH (14:06)
--- NOTE | 2016-12-24 15:35 | ECHO ---
[email or web address] [address] [address] Main: [phone] Fax: Transthoracic Echocardiogram Name: AYAD YOST MR#: [id number] Study Date: 12/24/2016 Study Time: 12:26 PM Date of : 1945 Age: 71 year(s) Height: 170.2 cm (67 in.) Weight: 68.04 kg (150 lb.) BSA: 1.79 m2 Gender: Female Examination: Echo Indication: eval EF, eval for pericardial effusion Image Quality: Technically Difficult Contrast: Requested by: Kyrie Busby BP: / Heart Rate: Rhythm: Normal sinus rhythm Indication: eval EF, eval for pericardial effusion Procedure Staff Relief Salesperson: Michelle Ward Physician: Grupo Lara Requesting Provider: Conclusions: Normal size left ventricle. No LV hypertrophy. Normal global systolic LV function. EF is 66 %. Normal diastolic LV function. The left atrium is mildly dilated. Mild to moderate mitral regurgitation. Trivial to mild tricuspid valve regurgitation. The pulmonary artery pressure is normal. In a single view, there was a suggestion of thrombus within the inferior vena cava. Measurements: Chambers Valvular Assessment AV/MV Valvular Assessment TV/PV Normal Normal Normal Name Value Range Name Value Range Name Value Range Ao Jenae (MM): 2.7 cm (2.2 cm-3.7 AV Vmax: 1.16 m/s (1 m/s-1.7 TR Vmax: 2.48 mm/s ( - ) cm) m/s) TR PGmax: 25 mmHg ( - ) IVSd (2D): 0.9 cm (0.6 cm-1.1 AV maxP mmHg ( - ) syst. PAP: 30 mmHg ( - ) cm) LVOT Vmax: 0.88 m/s (0.7 m/s-1.1 PV Vmax: 1.17 m/s (0.6 m/s-0.9 LVDd (2D): 4.4 cm (3.9 cm-5.3 m/s) m/s) cm) MV E Vmax: 0.90 m/s ( - ) PV PGmax: 5 mmHg ( - ) LVDs (2D): 3.0 cm (2.1 cm-4 MV A Vmax: 1.01 m/s ( - ) cm) MV E/A: 0.89 ( - ) LVPWd (2D): 0.9 cm ( - ) LVEF (MOD4): 66 % (>=55 %) Continued Measurements: Chambers Valvular Assessment AV/MV Valvular Assessment TV/PV Patient: AYAD YOST Study Date: 12/24/2016 Page 1 of 2 12:26 PM Name Value Name Value Name Value LADs Lon.9 cm MV DecTime: 180 m/s CVP (est.): 5 mmHg LA Area: 19.8 cm2 MV E' Septal: 0.09 m/s LA Volume: 35 ml MV E/E' Septal: 10.30 LA Volume Index: 19.6 ml/m2 MV E/E' Lateral: 7.80 RA Area: 13.2 cm2 Additional Vessels Name Value Ao Ascendin.7 cm Findings: Left Ventricle: Normal size left ventricle. No LV hypertrophy. Normal global systolic LV function. EF is 66 %. No regional wall motion abnormality. Normal diastolic LV function. Right Ventricle: Normal size right ventricle. Normal RV function. Left Atrium: The left atrium is mildly dilated. Right Atrium: The right atrium is normal in size. Mitral Valve: The mitral valve is normal in appearance and function. Mild to moderate mitral regurgitation. Aortic Valve: The aortic valve is normal in appearance and function. There is no aortic valve regurgitation. No aortic valve stenosis is present. Tricuspid Valve: The tricuspid valve is normal in appearance and function. Trivial to mild tricuspid valve regurgitation. The pulmonary artery pressure is normal. Right ventricular systolic pressure measures 30mmHg. Pulmonic Valve: Pulmonary valve not well visualized. Trivial pulmonic valve regurgitation. Aorta: The aorta is normal. Normal size aortic root measuring 2.7 cm. Normal size ascending aorta measuring 2.7 cm. IVC: The IVC is normal sized. Pericardium: No pericardial effusion. (No Signature Object) Patient: AYAD YOST Study Date: 12/24/2016 Page 2 of 2 12:26 PM [id number]
--- NOTE | 2016-12-24 15:35 | ECHO ---
[email or web address] [address] [address] Main: [phone] Fax: Transthoracic Echocardiogram Name: AYAD YOST MR#: [id number] Study Date: 12/24/2016 Study Time: 12:26 PM Date of : 1945 Age: 71 year(s) Height: 170.2 cm (67 in.) Weight: 68.04 kg (150 lb.) BSA: 1.79 m2 Gender: Female Examination: Echo Indication: eval EF, eval for pericardial effusion Image Quality: Technically Difficult Contrast: Requested by: Kyrie Busby BP: / Heart Rate: Rhythm: Normal sinus rhythm Indication: eval EF, eval for pericardial effusion Procedure Staff Type Photography Supervisor: Michelle Ward Physician: Grupo Lara Requesting Provider: Conclusions: Normal size left ventricle. No LV hypertrophy. Normal global systolic LV function. EF is 66 %. Normal diastolic LV function. The left atrium is mildly dilated. Mild to moderate mitral regurgitation. Trivial to mild tricuspid valve regurgitation. The pulmonary artery pressure is normal. In a single view, there was a suggestion of thrombus within the inferior vena cava. Measurements: Chambers Valvular Assessment AV/MV Valvular Assessment TV/PV Normal Normal Normal Name Value Range Name Value Range Name Value Range Ao Jenae (MM): 2.7 cm (2.2 cm-3.7 AV Vmax: 1.16 m/s (1 m/s-1.7 TR Vmax: 2.48 mm/s ( - ) cm) m/s) TR PGmax: 25 mmHg ( - ) IVSd (2D): 0.9 cm (0.6 cm-1.1 AV maxP mmHg ( - ) syst. PAP: 30 mmHg ( - ) cm) LVOT Vmax: 0.88 m/s (0.7 m/s-1.1 PV Vmax: 1.17 m/s (0.6 m/s-0.9 LVDd (2D): 4.4 cm (3.9 cm-5.3 m/s) m/s) cm) MV E Vmax: 0.90 m/s ( - ) PV PGmax: 5 mmHg ( - ) LVDs (2D): 3.0 cm (2.1 cm-4 MV A Vmax: 1.01 m/s ( - ) cm) MV E/A: 0.89 ( - ) LVPWd (2D): 0.9 cm ( - ) LVEF (MOD4): 66 % (>=55 %) Continued Measurements: Chambers Valvular Assessment AV/MV Valvular Assessment TV/PV Patient: AYAD YOST Study Date: 12/24/2016 Page 1 of 2 12:26 PM Name Value Name Value Name Value LADs Lon.9 cm MV DecTime: 180 m/s CVP (est.): 5 mmHg LA Area: 19.8 cm2 MV E' Septal: 0.09 m/s LA Volume: 35 ml MV E/E' Septal: 10.30 LA Volume Index: 19.6 ml/m2 MV E/E' Lateral: 7.80 RA Area: 13.2 cm2 Additional Vessels Name Value Ao Ascendin.7 cm Findings: Left Ventricle: Normal size left ventricle. No LV hypertrophy. Normal global systolic LV function. EF is 66 %. No regional wall motion abnormality. Normal diastolic LV function. Right Ventricle: Normal size right ventricle. Normal RV function. Left Atrium: The left atrium is mildly dilated. Right Atrium: The right atrium is normal in size. Mitral Valve: The mitral valve is normal in appearance and function. Mild to moderate mitral regurgitation. Aortic Valve: The aortic valve is normal in appearance and function. There is no aortic valve regurgitation. No aortic valve stenosis is present. Tricuspid Valve: The tricuspid valve is normal in appearance and function. Trivial to mild tricuspid valve regurgitation. The pulmonary artery pressure is normal. Right ventricular systolic pressure measures 30mmHg. Pulmonic Valve: Pulmonary valve not well visualized. Trivial pulmonic valve regurgitation. Aorta: The aorta is normal. Normal size aortic root measuring 2.7 cm. Normal size ascending aorta measuring 2.7 cm. IVC: The IVC is normal sized. Pericardium: No pericardial effusion. (No Signature Object) Patient: AYAD YOST Study Date: 12/24/2016 Page 2 of 2 12:26 PM [id number]
--- NOTE | 2016-12-24 15:35 | ECHO ---
[email or web address] [address] [address] Main: [phone] Fax: Transthoracic Echocardiogram Name: AYAD YOST MR#: [id number] Study Date: 12/24/2016 Study Time: 12:26 PM Date of : 1945 Age: 71 year(s) Height: 170.2 cm (67 in.) Weight: 68.04 kg (150 lb.) BSA: 1.79 m2 Gender: Female Examination: Echo Indication: eval EF, eval for pericardial effusion Image Quality: Technically Difficult Contrast: Requested by: Kyrie Busby BP: / Heart Rate: Rhythm: Normal sinus rhythm Indication: eval EF, eval for pericardial effusion Procedure Staff Mechanical Design Technician: Michelle Ward Physician: [employer] Requesting Provider: Conclusions: Normal size left ventricle. No LV hypertrophy. Normal global systolic LV function. EF is 66 %. Normal diastolic LV function. The left atrium is mildly dilated. Mild to moderate mitral regurgitation. Trivial to mild tricuspid valve regurgitation. The pulmonary artery pressure is normal. In a single view, there was a suggestion of thrombus within the inferior vena cava. Measurements: Chambers Valvular Assessment AV/MV Valvular Assessment TV/PV Normal Normal Normal Name Value Range Name Value Range Name Value Range Ao Jenae (MM): 2.7 cm (2.2 cm-3.7 AV Vmax: 1.16 m/s (1 m/s-1.7 TR Vmax: 2.48 mm/s ( - ) cm) m/s) TR PGmax: 25 mmHg ( - ) IVSd (2D): 0.9 cm (0.6 cm-1.1 AV maxP mmHg ( - ) syst. PAP: 30 mmHg ( - ) cm) LVOT Vmax: 0.88 m/s (0.7 m/s-1.1 PV Vmax: 1.17 m/s (0.6 m/s-0.9 LVDd (2D): 4.4 cm (3.9 cm-5.3 m/s) m/s) cm) MV E Vmax: 0.90 m/s ( - ) PV PGmax: 5 mmHg ( - ) LVDs (2D): 3.0 cm (2.1 cm-4 MV A Vmax: 1.01 m/s ( - ) cm) MV E/A: 0.89 ( - ) LVPWd (2D): 0.9 cm ( - ) LVEF (MOD4): 66 % (>=55 %) Continued Measurements: Chambers Valvular Assessment AV/MV Valvular Assessment TV/PV Patient: AYAD YOST Study Date: 12/24/2016 Page 1 of 2 12:26 PM Name Value Name Value Name Value LADs Lon.9 cm MV DecTime: 180 m/s CVP (est.): 5 mmHg LA Area: 19.8 cm2 MV E' Septal: 0.09 m/s LA Volume: 35 ml MV E/E' Septal: 10.30 LA Volume Index: 19.6 ml/m2 MV E/E' Lateral: 7.80 RA Area: 13.2 cm2 Additional Vessels Name Value Ao Ascendin.7 cm Findings: Left Ventricle: Normal size left ventricle. No LV hypertrophy. Normal global systolic LV function. EF is 66 %. No regional wall motion abnormality. Normal diastolic LV function. Right Ventricle: Normal size right ventricle. Normal RV function. Left Atrium: The left atrium is mildly dilated. Right Atrium: The right atrium is normal in size. Mitral Valve: The mitral valve is normal in appearance and function. Mild to moderate mitral regurgitation. Aortic Valve: The aortic valve is normal in appearance and function. There is no aortic valve regurgitation. No aortic valve stenosis is present. Tricuspid Valve: The tricuspid valve is normal in appearance and function. Trivial to mild tricuspid valve regurgitation. The pulmonary artery pressure is normal. Right ventricular systolic pressure measures 30mmHg. Pulmonic Valve: Pulmonary valve not well visualized. Trivial pulmonic valve regurgitation. Aorta: The aorta is normal. Normal size aortic root measuring 2.7 cm. Normal size ascending aorta measuring 2.7 cm. IVC: The IVC is normal sized. Pericardium: No pericardial effusion. (No Signature Object) Patient: AYAD YOST Study Date: 12/24/2016 Page 2 of 2 12:26 PM [id number]
--- NOTE | 2016-12-24 15:54 | PDIAF ---
- Diagnosis Diagnosis: Deep Wound Infection T12-L1, Possible Pulmonary Embolism, Costochondritis Code Status: Full Code - Medication Management Discharge Medications: Medications to Continue on Transfer Estradiol [Estrace Vaginal (*)] 1 venice VG BEENA@2200 10/08/14 [Last Taken ] Fluticasone Nasal [Flonase Nasal [place]] 2 sprays EACHNARE HS 10/08/14 [Last Taken 12/22/16] Gemfibrozil [Lopid 600 MG (*)] 600 mg PO BIDAC 10/08/14 [Last Taken 12/23/16] Omeprazole [Prilosec 20 mg] 20 mg PO DAILY 10/08/14 [Last Taken 12/23/16] Rosuvastatin Calcium [Crestor 20mg (*)] 10 mg PO HS 10/08/14 [Last Taken ] Verapamil HCl [Verapamil Sr] 180 mg PO DAILY 10/08/14 [Last Taken 12/23/16] Vitamin B Complex [B Complex] 1 each PO DAILY 10/08/14 [Last Taken 12/23/16] clonazePAM [klonoPIN (*)] 1 mg PO HS PRN 10/08/14 [Last Taken 12/22/16] Gabapentin [Neurontin 400 MG (*)] 1,200 mg PO BID 12/04/16 [Last Taken 12/23/16] Methocarbamol [Robaxin 750 mg (*)] 750 mg PO QID PRN tab 12/09/16 [Last Taken 1 Week Ago ~12/16/16] morphINE SR [Ms Contin/Oramorph 15 mg (*)] 15 mg PO HS tab 12/09/16 [Last Taken 12/20/16] Acetaminophen [Tylenol 325mg (*)] 325 mg PO DAILY PRN 12/23/16 [Last Taken Unknown] Diazepam [Valium 5 MG (*)] 5 mg PO Q8 PRN 12/23/16 [Last Taken 1 Week Ago ~12/16] Vancomycin HCl in Dextrose 5 % [Vancomycin 1.25 Gram/250Ml-D5w] 1.25 gm IV DAILY 12/23/16 [Last Taken 12/22/16] oxyCODONE IR [Oxycodone Ir (*)] 5 - 10 mg PO Q6HRS PRN 12/23/16 [Last Taken ] traMADol [Ultram 50 mg (*)] 50 - 100 mg PO Q6H PRN 12/23/16 [Last Taken Unknown] Enoxaparin [Lovenox 80 MG (*)] 70 mg SC BID #9 syr 12/24/16 [Last Taken Unknown] Lidocaine 5% [Lidoderm 5% Patch (*)] 1 ea TD DAILY #30 patch 12/24/16 [Last Taken Unknown] Patch Removal 1 ea TD DAILY21 patch 12/24/16 [Last Taken Unknown] Vancomycin [Vancocin Oral Liquid] 125 mg PO BID #60 udl 12/24/16 [Last Taken Unknown] Warfarin Sodium 5 mg PO DAILY16 #30 tablet 12/24/16 [Last Taken Unknown] Skilled Nursing Antibiotics: Vancomycin 1.25gm IV daily and vancomycin 125gm PO BID Skilled Nursing Antibiotic Stop Date: 02/05/17 Discharge Medications: Refer to the Discharge Home Medication list for PRN reason. PICC Care - Routine: Yes - Orders Services needed: Home Care, Registered Nurse Home Care Face to Face: I certify that this patient was under my care and that I had the required [id number] encounter meeting the encounter requirements on the discharge day. My findings support the fact that the patient is homebound as defined in Home Care Face to Face Continued: CMS Chapter 7 Medicare Benefits Manual 30.1.1 , The condition of the patient is such that there exists a normal inability to leave home and consequently, leaving home would require a considerable and taxing effort. Diet Recommendation: no restrictions on diet [place]: Not applicable - Labs/Radiology BMP Date: 12/31/16 (Every ) CBC w/diff Date: 12/28/16 (Every Wednesday) CMP Date: 12/28/16 (Every Wednesday) CRP Date: 12/28/16 (Every Wednesday) PT/INR Date: 12/28/16 (weekly) Vanco Trough Date and Time: Every Wednesday and starting 12/28/2016 and 12/31/2026 Call or Fax Lab and Imaging Results to: INR to Dr. Li, all others to Dr. Evangelina Garvin (fax [phone]) - Follow Up Care Current Providers and Referrals: Handy Li MD [Primary Care Provider] - As per Instructions Evangelina Garvin MD [Medical Doctor] - 01/05/17 1:30 pm
--- NOTE | 2016-12-24 16:01 | PDDCSUM ---
Discharge Summary Discharge Summary: DISCHARGE SUMMARY FOLLOW-UP ITEMS: PT and INR on on 12/28, then weekly thereafter, Coumadin dose adjustments to be managed by Dr. Handy Li DATE OF ADMISSION: 12/23/2016 DATE OF DISCHARGE: 12/24/2016 DISCHARGE DIAGNOSES: 1. Possible acute pulmonary embolism, presentation 2. Costochondritis 3. Polymicrobial postoperative deep wound infection at T12-L1 CONSULTATIONS: Infectious Disease PROCEDURES / IMAGING: Echocardiogram demonstrating normal left ventricular function with possible small IVC clot, CT angiograms demonstrating possible small right lower lobe segmental and subsegmental pulmonary embolism CHIEF COMPLAINT: Acute chest pain SUBJECTIVE: Patient continues to experience tenderness over her anterior chest, improved with Lidoderm patch PHYSICAL EXAM ON DISCHARGE: Systolic blood pressure is 130, heart rate 70, afebrile overnight, satting well on room air, ambulatory sat 95% on room air, lungs are clear to auscultation bilaterally without any crackles or expiratory wheezes, there continues to be some chest wall tenderness over the area immediately superior to the sternum, without any visible vesicular lesions or rash, she has full range of motion of her bilateral shoulders without any pain or limitations in range of motion, there is no abdominal tenderness to palpation in the mid epigastric area LABS ON DISCHARGE: Respiratory viral panel normal, potassium 3.4, creatinine 0.9, D-dimer 5, white blood cell count 5300 HOSPITAL COURSE BY PROBLEM: The patient presented with anterior chest wall discomfort and shortness of breath. These 2 issues may in fact be separate, as the patient most likely has costochondritis resulting in her anterior chest wall discomfort, which is immediately reproducible on physical exam, may be secondary to inflammation from a possible upper respiratory infection versus systemic inflammation in the setting of her polymicrobial postoperative deep wound infection. Her chest discomfort has been symptomatically improved with Lidoderm patch, I recommend ongoing Lidoderm patch as well as as needed opiate pain medications. Nonsteroidal anti-inflammatory medications are contraindicated in the setting of her systemic anticoagulation, which has been initiated for possible pulmonary embolism. The patient's shortness of breath may be secondary to small clot located in the right segmental and subsegmental branches, which could be the sequelae of recent surgery and immobility. Lower extremity ultrasound did not demonstrate any evidence of DVT, but echocardiogram did demonstrate possible small clot in the IVC. Given these findings, the patient elected to initiate systemic anticoagulation with Lovenox bridge to Coumadin, so that she can receive reversal therapy if she does experience any surgical site bleeding. She will have a repeat PT and INR on Wednesday next week, with dose adjustments to be managed by Dr. Handy Li office. She will remain on Lovenox bridge through that time. I would recommend 3 months of therapy, then reassessment with D-dimer. The patient was seen by infectious disease for polymicrobial postoperative infection, continued on IV vancomycin, as well as oral vancomycin for C diff suppressive therapy while she is on antibiotics. DISCHARGE MEDICATIONS: Please see official discharge medication reconciliation sheet in chart , continue home medications with the addition of Lovenox 70 twice daily for the next 5 days, Coumadin 5 mg daily Lidoderm patch. DISCHARGE INSTRUCTIONS: Please follow up with Infectious Disease as previously scheduled.
[2016-12-24] MEDS ORDERED: ENOXAPARIN 80 MG/0.8 ML SYR SC SCH (21:00)
--- NOTE | 2016-12-25 09:47 | ASDISCHSUM ---
Discharge Information Plan Status:IV ABX/Infusion Medically Cleared to Leave: Discharge Date:12/24/2016 04:47 PM D/C Disposition:Home Health Service ADT D/C Disposition:Home, Routine, Self-Care Projected Discharge Date:12/24/2016 11:00 AM Transportation at D/C:Family Discharge Delay Reason: Follow-Up Date:12/24/2016 11:00 AM Discharge Slot: Final Diagnosis: Placement Information Referral Type:*Home Health Care Services Referral ID:[id number] Provider Name:[facility] [address] 2: City:[place] Selection Factors: State:[place] Referral Type:Home Infusion Referral ID:[id number] Provider Name:[facility] [place] ([facility]) Address 1:[address] Address 2: City:[place] Selection Factors: State:[place] Patient Contact Information Contact Name:DONAL Relationship: Address:[address] City:[facility] Phone: State/Zip Code:[place] [address] Email: Financial Information Financial Class: Primary Plan Desc:MEDICARE OUTPATIENT Primary Plan Number:[id number] Secondary Plan Desc:[employer]ET[employer] PPO POS O Secondary Plan Number:[id number] Assessment Information [facility] CM Progress Note CM Note CM Note Notes: Ashley from [facility] called re patient arriving to the ER. Patient is currently followed by [facility] and Dr. Nayeli Garvin for IV antibiotics. Patient is now being admitted for further workup/treatment for a pulmonary embolism (PE). I have contacted Dr. Garvin and Dr. Li (patient's PCP to alert of admission). CM to follow with D/C planning Date Signed: 12/23/2016 01:18 PM Electronically Signed By:Cheri Lawton RN BC CM Progress Note CM Note CM Note Notes: Spoke w/pt, is current with [facility] for homecare (RN/PT) and [facility] for IV abx. Anticipate pt will dc home with same services. Current DC Plan: Dc home w/[facility] and [facility] Date Signed: 12/24/2016 10:46 AM Electronically Signed By:Rebecca Plata RN Intervention Information Intervention Type:*CHRIS-Signed Date of Service:12/24/2016 02:20 PM Patient Type:Observation Staff Member:Zuly Prasad Hours: Discipline: Severity: Comment:
--- NOTE | 2016-12-25 09:47 | ASDISCHSUM ---
Discharge Information Plan Status:IV ABX/Infusion Medically Cleared to Leave: Discharge Date:12/24/2016 04:47 PM D/C Disposition:Home Health Service ADT D/C Disposition:Home, Routine, Self-Care Projected Discharge Date:12/24/2016 11:00 AM Transportation at D/C:Family Discharge Delay Reason: Follow-Up Date:12/24/2016 11:00 AM Discharge Slot: Final Diagnosis: Placement Information Referral Type:*Home Health Care Services Referral ID:[id number] Provider Name:[facility] [address] 2: City:[place] Selection Factors: State:[place] Referral Type:Home Infusion Referral ID:[id number] Provider Name:[facility] [place] ([facility] Address 1:[address] Address 2: City:[place] Selection Factors: State:[place] Patient Contact Information Contact Name:DONAL Relationship: Address:[address] City:[facility] Phone: State/Zip Code:[place] [address] Email: Financial Information Financial Class: Primary Plan Desc:MEDICARE OUTPATIENT Primary Plan Number:[id number] Secondary Plan Desc:AETNA PPO POS O Secondary Plan Number:[id number] Assessment Information [facility] CM Progress Note CM Note CM Note Notes: Ashley from [facility] called re patient arriving to the ER. Patient is currently followed by [facility] and Dr. Nayeli Garvin for IV antibiotics. Patient is now being admitted for further workup/treatment for a pulmonary embolism (PE). I have contacted Dr. Garvin and Dr. Li (patient's PCP to alert of admission). CM to follow with D/C planning Date Signed: 12/23/2016 01:18 PM Electronically Signed By:Cheri Lawton RN BC CM Progress Note CM Note CM Note Notes: Spoke w/pt, is current with [facility] for homecare (RN/PT) and [facility] for IV abx. Anticipate pt will dc home with same services. Current DC Plan: Dc home w/[facility] and [facility] Date Signed: 12/24/2016 10:46 AM Electronically Signed By:Rebecca Plata RN Intervention Information Intervention Type:*CHRIS-Signed Date of Service:12/24/2016 02:20 PM Patient Type:Observation Staff Member:Zuly Prasad Hours: Discipline: Severity: Comment:
--- NOTE | 2016-12-25 09:47 | ASDISCHSUM ---
Discharge Information Plan Status:IV ABX/Infusion Medically Cleared to Leave: Discharge Date:12/24/2016 04:47 PM D/C Disposition:Home Health Service ADT D/C Disposition:Home, Routine, Self-Care Projected Discharge Date:12/24/2016 11:00 AM Transportation at D/C:Family Discharge Delay Reason: Follow-Up Date:12/24/2016 11:00 AM Discharge Slot: Final Diagnosis: Placement Information Referral Type:*Home Health Care Services Referral ID:[id number] Provider Name:[facility] [address] 2: City:[place] Selection Factors: State:[place] Referral Type:Home Infusion Referral ID:[id number] Provider Name:[facility] [place] ([facility] Address 1[address] Address 2: City:[place] Selection Factors: State:[place] Patient Contact Information Contact Name:DONAL Relationship: Address:[address] City:[facility] Phone: State/Zip Code:[place] [address] Email: Financial Information Financial Class: Primary Plan Desc:MEDICARE OUTPATIENT Primary Plan Number:[id number] Secondary Plan Desc:AETNA PPO POS O Secondary Plan Number:[id number] Assessment Information [facility] CM Progress Note CM Note CM Note Notes: Ashley from [facility] called re patient arriving to the ER. Patient is currently followed by [facility] and Dr. Nayeli Garvin for IV antibiotics. Patient is now being admitted for further workup/treatment for a pulmonary embolism (PE). I have contacted Dr. Garvin and Dr. Li (patient's PCP to alert of admission). CM to follow with D/C planning Date Signed: 12/23/2016 01:18 PM Electronically Signed By:Cheri Lawton RN BC CM Progress Note CM Note CM Note Notes: Spoke w/pt, is current with [facility] for homecare (RN/PT) and [facility] for IV abx. Anticipate pt will dc home with same services. Current DC Plan: Dc home w/[facility] and [facility] Date Signed: 12/24/2016 10:46 AM Electronically Signed By:Rebecca Plaat RN Intervention Information Intervention Type:*CHRIS-Signed Date of Service:12/24/2016 02:20 PM Patient Type:Observation Staff Member:Zuly Prasad Hours: Discipline: Severity: Comment:
== END 2016-12-24 16:47 | disposition home or self-care (01) ==
LOC: INTOOBSV 12:44 → F3E 14:01
PROVIDERS: ADMIT Internal Medicine; ATTEND Internal Medicine
DX: I26.99 Other pulmonary embolism without acute cor pulmonale (principal); M94.0 Chondrocostal junction syndrome [Tietze]; T81.4XXA Infection following a procedure, initial encounter; B95.2 Enterococcus as the cause of diseases classified elsewhere; B96.89 Other specified bacterial agents as the cause of diseases classified elsewhere; Z98.1 Arthrodesis status; E78.5 Hyperlipidemia, unspecified; K21.9 Gastro-esophageal reflux disease without esophagitis
CPT/HCPCS: 71275; 93005; 93306; 93970; 97161; 97165; 99285; G0378; G8978; G8979; G8990; G8991; G8992; J1650; J3370; Q9967; 82947-QW

== ENCOUNTER 2016-12-26 17:57 | Emergency (ER) | payer OTHER ==
--- NOTE | 2016-12-26 19:08 | EDPHY ---
H & P Time Seen by Provider: 12/26/16 18:15 HPI/ROS: HPI Shortness of breath. 71-year-old female by private vehicle with her . This patient was diagnosed with a pulmonary embolism on December 23. She was admitted to our hospital. She was discharged yesterday on a enoxaparin and Coumadin bridging regiment. She has been taking her medications. She reports that since this afternoon she has had episodes of feeling short of breath. She reports also that during this episode she feels confused. She is concerned that her oxygen levels are getting too low. She has not had any chest pain. Denies any palpitations. No cough. No fever. She and her are asking for admission for her overnight to be observed. ROS: Constitutional: No fever, no chills. No weakness. As above. Eyes: No discharge. No changes in vision. ENT: No sore throat. No nasal congestion or rhinorrhea. Respiratory: No cough. As above. Cardiac: No chest pain, no palpitations. Gastrointestinal: No abdominal pain, no vomiting, no diarrhea. Genitourinary: No hematuria. No dysuria or increased frequency with urination. Musculoskeletal: No back pain. No neck pain. No myalgias or arthralgias. Skin: No rashes. Neurological: No headache. No focal weakness or altered sensation. Past medical history: Multiple spinal surgeries, uterine prolapse surgery, migraine headaches, esophageal reflux, osteoarthritis. She has a staph infection involving her thoracic spine. And is currently being treated as an outpatient with intravenous vancomycin. She has a PICC line in the right upper extremity for this. Social history: Nonsmoker. No alcohol. Here with her . Physical Exam: General Appearance: Alert, she is mildly anxious but not in distress. This patient is responding to questions appropriately and in full sentences. This patient appears well-hydrated and well-nourished. Eyes: Pupils equal and round no pallor or injection. No lid edema, erythema or injection. Respiratory: There are no retractions, lungs are clear to auscultation with good air movement bilaterally. Cardiovascular: Regular rate and rhythm. No murmur. Gastrointestinal: Abdomen is soft and nontender, no masses, bowel sounds normal. No focal tenderness at McBurney's point. No Shi sign. Neurological: Motor sensory function is grossly intact. Cranial nerves are normal. Gait is normal. Skin: Warm and dry, no rashes. Musculoskeletal: Neck is supple and nontender. Extremities are symmetrical. All joints range without pain or impingement. Psychiatric: No agitation. No depression. Database: EKG: EKG time is 7:33 p.m.; EKG shows a narrow complex normal sinus rhythm with a ventricular rate of 66. The GA, QRS, QT intervals are within normal limits. There are no ST-T wave changes indicative of ischemic or injury pattern. No evidence of right heart strain. Interpreted by me. Imaging: Chest x-ray PA and lateral; the cardiac mediastinal silhouette is unremarkable. No evidence of infiltrate or pneumothorax. Mild bronchitis. No other acute cardiopulmonary disease process noted. Interpreted by me. Procedures: Emergency department course: She has a PICC line placed. She was placed on a sales and catering coordinator. Chest x-ray and EKG obtained. Vital signs reviewed. She is moderately hypertensive. Vital signs are otherwise normal. Pulse oximetry currently 98% on room air. 8:10 p.m., patient re-evaluated. She is resting comfortably at this time. She has been on a sales and catering coordinator and pulse oximeter throughout her emergency department course. She has been moderately hypertensive. Otherwise her vital signs have been normal. She has had a narrow complex sinus rhythm with ventricular rates in the mid 60s since being here. Her room air pulse oximetries have been in the mid to high 90s. I explained to the patient that she did not have any concerning findings on her chest x-ray or EKG and that she was on the proper therapy for her pulmonary embolism. At this time she does feel comfortable going home. I advised follow up with her primary care physician, Dr. Handy Li, on Wednesday for re-evaluation. Return to emergency department precautions were discussed with her and her . All of their questions were answered. She was discharged in good condition. Differential Diagnosis: The differential diagnosis on this patient includes but is not limited to anxiety reaction, pulmonary embolism with dyspnea. Propagating pulmonary emboli , pneumonia, congestive heart failure, hypoxia unlikely. This represents a partial list of diagnoses considered. These considerations are based on history , physical exam, past history, reassessment and diagnostic testing. Smoking Status: Former smoker Constitutional: Initial Vital Signs Temperature (C) 36.8 C 12/26/16 18:01 Heart Rate 78 12/26/16 18:01 Respiratory Rate 16 12/26/16 18:01 Blood Pressure 167/74 H 12/26/16 18:01 O2 Sat (%) 98 12/26/16 18:01 O2 Delivery Mode Room Air Allergies/Adverse Reactions: No Known Drug Allergies Allergy (Unknown, Verified 12/26/16 18:00) SHRIMP Allergy (Severe, Uncoded 12/04/16 15:18) SWELLS ANYWHERE IT TOUCHES SEASONAL Allergy (Intermediate, Uncoded 12/04/16 15:18) RUNNY NOSE, ITCHY EYES Home Medications: Medication Instructions Recorded Estradiol [Estrace Vaginal (*)] 1 venice VG [id number]@2200 10/08/14 Fluticasone Nasal [Flonase Nasal 2 sprays [place] HS 10/08/14 [place]] Gemfibrozil [Lopid 600 MG (*)] 600 mg PO BIDAC 10/08/14 Omeprazole [Prilosec 20 mg] 20 mg PO DAILY 10/08/14 Rosuvastatin Calcium [Crestor 20mg 10 mg PO HS 10/08/14 (*)] Verapamil HCl [Verapamil Sr] 180 mg PO DAILY 10/08/14 Vitamin B Complex [B Complex] 1 each PO DAILY 10/08/14 clonazePAM [klonoPIN (*)] 1 mg PO HS PRN 10/08/14 Gabapentin [Neurontin 400 MG (*)] 1,200 mg PO BID 12/04/16 Methocarbamol [Robaxin 750 mg (*)] 750 mg PO QID PRN tab 12/09/16 morphINE SR [Ms Contin/Oramorph 15 15 mg PO HS tab 12/09/16 mg (*)] Acetaminophen [Tylenol 325mg (*)] 325 mg PO DAILY PRN 12/23/16 Diazepam [Valium 5 MG (*)] 5 mg PO Q8 PRN 12/23/16 Vancomycin HCl in Dextrose 5 % 1.25 gm IV DAILY 12/23/16 [Vancomycin 1.25 Gram/[id number]] oxyCODONE IR [Oxycodone Ir (*)] 5 - 10 mg PO Q6HRS PRN 12/23/16 traMADol [Ultram 50 mg (*)] 50 - 100 mg PO Q6H PRN 12/23/16 Enoxaparin [Lovenox 80 MG (*)] 70 mg SC BID #9 syr 11/02/17 Lidocaine 5% [Lidoderm 5% Patch 1 ea TD DAILY #30 patch 12/24/16 (*)] Patch Removal 1 ea TD DAILY21 patch 12/24/16 Vancomycin [Vancocin Oral Liquid] 125 mg PO BID #60 udl 12/24/16 Warfarin Sodium 5 mg PO DAILY16 #30 tablet 12/24/16 Medical Decision Making - Diagnostics Imaging Results: Imaging Impressions Chest X-Ray 12/26/16 18:28 Impression: Mild peribronchial thickening suggesting airways disease/bronchitis. Departure - Departure Disposition: [facility] Inpatient Acute Clinical Impression: Pulmonary embolism, Dyspnea, Anxiety Condition: Good Instructions: Dyspnea (ED) Additional Instructions: Read and follow provided instructions. Follow-up with your primary care physician, Dr. mondragon, on Wednesday for re- evaluation as discussed. Take medication for treatment of pulmonary embolism as prescribed. Return to the emergency department for worsening symptoms, chest pain or other serious concerns. Referrals: Handy Li MD [Primary Care Provider] - As per Instructions
--- NOTE | 2016-12-26 19:36 | CPEKG ---
Heart Rate: 66 RR Interval: 909 P-R Interval: 212 QRSD Interval: 82 QT Interval: 440 QTC Interval: 461 P [place]: 70 QRS [place]: -13 T Wave [place]: 17 EKG Severity - NORMAL ECG - EKG Impression: SINUS RHYTHM Electronically Signed By: David Rojas 26-Dec-2016 20:56:45
[2016-12-26 20:36] VITALS: BP 147/64; PULSE 75; RESP 16; TEMP 98.1; O2SAT 97
== END 2016-12-26 20:36 | disposition still patient (30) ==
DX: I26.99 Other pulmonary embolism without acute cor pulmonale (principal); F41.9 Anxiety disorder, unspecified; Z79.01 Long term (current) use of anticoagulants

== ENCOUNTER → 2017-01-05 | Outpatient (CLI) | payer OTHER | LOC: FIMAGING 14:24 | PROVIDERS: ATTEND Physician Assistant Surgical | DX: M48.56XA Collapsed vertebra, not elsewhere classified, lumbar region, initial encounter for fracture (principal); T81.4XXD Infection following a procedure, subsequent encounter; Z98.1 Arthrodesis status ==

== ENCOUNTER → 2017-03-16 | Outpatient (CLI) | payer OTHER | LOC: FIMAGING 10:36 | PROVIDERS: ATTEND Neurological Surgery | DX: M16.0 Bilateral primary osteoarthritis of hip (principal); M53.3 Sacrococcygeal disorders, not elsewhere classified; Z98.1 Arthrodesis status ==

== ENCOUNTER → 2017-03-24 | Outpatient (CLI) | payer OTHER | LOC: FIMAGING 10:45 | PROVIDERS: ATTEND Internal Medicine | DX: R13.12 Dysphagia, oropharyngeal phase (principal); K21.9 Gastro-esophageal reflux disease without esophagitis | CPT/HCPCS: 74230; 92611; G8996; G8997; G8998 ==

== ENCOUNTER → 2017-07-07 | Outpatient (CLI) | payer OTHER | LOC: FIMAGING 14:40 | PROVIDERS: ATTEND Physician Assistant Surgical | DX: Z98.1 Arthrodesis status (principal) ==

== ENCOUNTER → 2017-09-15 | Outpatient (CLI) | payer OTHER | LOC: FIMAGING 11:25 | PROVIDERS: ATTEND Internal Medicine | DX: R22.1 Localized swelling, mass and lump, neck (principal) ==

== ENCOUNTER → 2017-12-01 | Outpatient (CLI) | payer OTHER | LOC: FIMAGING 13:24 | PROVIDERS: ATTEND Physician Assistant Surgical | DX: Z47.89 Encounter for other orthopedic aftercare (principal); Z98.1 Arthrodesis status ==

== ENCOUNTER → 2018-04-07 | Outpatient (CLI) | payer OTHER | LOC: FIMAGING 12:59 | PROVIDERS: ATTEND Internal Medicine | DX: J32.9 Chronic sinusitis, unspecified (principal) ==